=== PATIENT | male | born 1970 | race Caucasian/White ===

== ENCOUNTER 2017-01-30 18:30 | Emergency (ER) | payer SELFPAY ==
[~2017-01-30] VITALS: Ht 170.2 cm; Wt 118.8 kg
[~2017-01-30 18:30] MED LIST: ASP325TEC PO; ASPI-266 PO; ASPI-587 PO; ATOR80TA75 PO; CARV25TA PO; CARV6.252 PO; Cefuroxime Axetil PO; DESV100T PO; DIAZ10TA3 PO; EZET10TA23 PO; FOLI1TAB24 PO; FURO40TA4 PO; GABA800T2 PO; GBPN600T PO; HYDR118S10 PO; IBP800T PO; IBUP800T26 PO; ICOS1CAP PO; KCL10CCR PO; LANS15CA PO; LIRA0.6P SC; LISI10TA2 PO; LISI40TA PO; METF500T4 PO; METH2.5T PO; MOBIC; MTF500T PO; OMEP40CA36 PO; OXYC1TAB28 PO; OXYC20TA14 PO; OXYC80TA39 PO; OXYC80TA42 PO; PRAM1TAB3 PO; PRD50T PO; PRED20TA PO; ROSU20TA14 PO; ROSU40TA PO; SULF-222 PO; TADA5TAB2 PO; TRAM50TA2 PO; VENL150C PO; VENL150C53 PO; VENL75CA PO; VENL75CA55 PO
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
--- NOTE | 2017-01-30 19:37 | Diagnostic Imaging Report ---
INDICATION: Shoulder pain after fall. COMPARISON: Comparison is made to prior study from 05/21/2016. FINDINGS: Heart size is stable. There is unchanged prominence of the maría. There is no pleural effusion or pneumothorax. Mediastinum is unremarkable. Pacemaker overlies the left hemithorax. There are no displaced rib fractures. IMPRESSION: 1. Unchanged prominence of the maría bilaterally, irregular on the left. This is nonspecific however may be related to the patient's previous diagnosis of sarcoidosis. If clinically warranted, this could be better evaluated with CT chest. 2. No other acute cardiopulmonary abnormality. Specifically, there are no displaced rib fractures. Dictated by: Dictated on workstation # [id number]
--- NOTE | 2017-01-30 19:50 | Diagnostic Imaging Report ---
INDICATION: Fall. TECHNIQUE: Three views of the left shoulder were obtained. FINDINGS: The alignment is normal. There is no fracture or dislocation. Left lung is clear. Soft tissues are unremarkable. IMPRESSION: No acute fracture or dislocation. Dictated by: Dictated on workstation # [id number]
[2017-01-30 19:59] VITALS: BP 129/83
== END 2017-01-30 20:02 | disposition home or self-care (01) ==
LOC: EDUNIT# 18:30 → ER 18:32
DX: S20.212A Contusion of left front wall of thorax, initial encounter (principal); I10 Essential (primary) hypertension; E11.9 Type 2 diabetes mellitus without complications; F17.210 Nicotine dependence, cigarettes, uncomplicated; I25.2 Old myocardial infarction; Z79.82 Long term (current) use of aspirin; Z79.84 Long term (current) use of oral hypoglycemic drugs; Z95.810 Presence of automatic (implantable) cardiac defibrillator; W05.0XXA Fall from non-moving wheelchair, initial encounter; Y92.009 Unspecified place in unspecified non-institutional (private) residence as the place of occurrence of the external cause; Y99.8 Other external cause status
CPT/HCPCS: 71101; 73030; 99282

== ENCOUNTER → 2017-03-27 | Outpatient (CLI) | payer MEDICARE, OTHER ==
[~2017-03-27] MED LIST changes: +ASPI-983 PO; +ATOR80TA76 PO; +CEFU500T63 PO; +LISI-556 PO; +MOME13HF IH; +ORPH100T PO; +OXYC30TA80 PO; +PRED2.5T PO; +RT-ALBUTEROL SULF 2.5 MG/3 ML PRE-MIX VIAL IH ONE
== END ==
LOC: RT 14:09
PROVIDERS: ATTEND Nurse Practitioner Family
DX: R06.02 Shortness of breath; Z72.0 Tobacco use; D86.9 Sarcoidosis, unspecified
CPT/HCPCS: 94060; 94640; 94726; 94729

== ENCOUNTER 2017-05-02 09:30 | Outpatient (CLI) | payer MEDICARE, OTHER ==
[~2017-05-02 09:30] MED LIST changes: -ASPI-983 PO; -ATOR80TA76 PO; -CEFU500T63 PO; -LISI-556 PO; -MOME13HF IH; -ORPH100T PO; -OXYC30TA80 PO; -PRED2.5T PO; -RT-ALBUTEROL SULF 2.5 MG/3 ML PRE-MIX VIAL IH ONE
== END 2017-05-02 10:00 ==
LOC: SLEEP 09:30
PROVIDERS: ATTEND Nurse Practitioner Family
DX: G47.34 Idiopathic sleep related nonobstructive alveolar hypoventilation (principal); R06.02 Shortness of breath; D86.9 Sarcoidosis, unspecified

== ENCOUNTER 2017-07-25 15:02 | Day surgery (SDC) | payer MEDICARE, OTHER ==
[~2017-07-25] VITALS: Ht 170.2 cm; Wt 106.1 kg
--- OUTSIDE RECORDS SUMMARY | 2017-07-25 15:11 | XMS REPORT | Continuity of Care Document ---
Author Author [employer] Organization [facility] Address Unknown Phone Unavailable Care Team Providers Care Diesel Locomotive Firer Name Role Phone [employer] Unavailable Unavailable Problems Medications Allergies, Adverse Reactions, Alerts Immunizations Results Vital Signs Encounters Location Location Details Encounter Type Encounter Number Reason For Visit Attending Provider ADM Date DC Date Status Source Lisandro MILAN Active [facility] Procedures Plan of Care Social History Assessment and Plan Family History Value Date Source Advance Directives Order Name Results Value Date Source
--- OUTSIDE RECORDS SUMMARY | 2017-07-25 15:12 | XMS REPORT | Encounter Summary ---
Author Author [facility] Organization [facility] Address Unknown Phone Unavailable Care Team Providers Care Data Mining Analyst Name Role Phone PCP Unavailable Encounter Details Date Type Department Care Team Description 05/02/2017 [facility] Horace Pena MD Sarcoidosis, unspecified Encounter [address] (HCC) [place] [address] [address] [place] [address] [phone] Social History Tobacco Use Types Packs/Day Years Used Date Current Every Day Smoker Cigarettes 1 24 Smokeless Tobacco: Never Used Alcohol Use Drinks/Week oz/Week Comments No 0 Standard 0.0 drinks or equivalent Sex Assigned at Date Recorded Not on file as of this encounter Medications at Time of Discharge Medication Sig. Disp. Refills Start Date End Date aspirin EC 81 mg tablet Take 81 mg by mouth daily. atorvastatin (LIPITOR) 80 Take 80 mg by mouth mg tablet daily. azaTHIOprine (IMURAN) 50 Take 1 Tab by mouth twice 60 Tab 1 2016 mg tablet daily. carvedilol (COREG) 25 mg Take 25 mg by mouth twice tablet daily with meals. diazepam (VALIUM) 10 mg Take 10 mg by mouth every tablet 6 hours as needed. folic acid (FOLVITE) 1 mg TAKE ONE TABLET BY MOUTH 90 Tab 3 2015 tablet DAILY furosemide (LASIX) 40 mg Take 40 mg by mouth as tablet Needed. gabapentin (NEURONTIN) Take 800 mg by mouth four 800 mg tablet times daily. mycophenolate mofetil 2 Tabs twice daily. Take 120 Tab 1 05/20/2016 (CELLCEPT) 500 mg tablet on an empty stomach. oxyCODONE (ROXICODONE, Take 30 mg by mouth every OXY-IR) 30 mg tablet 4 hours as needed for Pain OXYGEN-AIR DELIVERY Use as directed. SYSTEMS MISC potassium chloride SR Take 10 mEq by mouth as (K-DUR) 10 mEq tablet Needed. predniSONE (DELTASONE) 5 7.5mg daily for 1 month, 45 Tab 3 08/30/2015 mg tablet then 5mg daily risperiDONE (RISPERDAL) Take 0.5 mg by mouth 0.5 mg tablet daily. tamsulosin (FLOMAX) 0.4 Take 0.4 mg by mouth mg capsule daily. VENLAFAXINE HCL (EFFEXOR Take 100 mg by mouth. PO) as of this encounter Plan of Treatment Not on fileas of this encounter Results * ANGIOTENSIN CONV ENZYME (GIGI) (05/02/2017 3:07 PM) Component Value Ref Range Angiotensin Convert 48 Enzyme Comment: Reference range: 8 to 53 Unit: U/L [facility] Specimen Performing Laboratory Blood REFERENCE LAB * SED RATE (05/02/2017 3:07 PM) Component Value Ref Range Sed Rate -ESR 8 0 - 15 MM/HR Specimen Performing Laboratory [facility] [address] [place] [address] * COMPREHENSIVE METABOLIC PANEL (05/02/2017 3:06 PM) Component Value Ref Range Sodium 137 137 - 147 MMOL/L Potassium 3.9 3.5 - 5.1 MMOL/L Chloride 101 98 - 110 MMOL/L Glucose 153 (H) 70 - 100 MG/DL Blood Urea Nitrogen 11 7 - 25 MG/DL Creatinine 1.11 0.4 - 1.24 MG/DL Calcium 9.6 8.5 - 10.6 MG/DL Total Protein 7.1 6.0 - 8.0 G/DL Total Bilirubin 0.9 0.3 - 1.2 MG/DL Albumin 4.1 3.5 - 5.0 G/DL Alk Phosphatase 69 25 - 110 U/L AST (SGOT) 32 7 - 40 U/L CO2 27 21 - 30 MMOL/L ALT (SGPT) 33 7 - 56 U/L Anion Gap 9 3 - 12 eGFR Non >60 >60 mL/min Comment: The eGFR is not validated for use in drug dosing adjustments. Continue to use estimated creatinine clearance per dosing reference text. Please contact the Clinical Pharmacist for questions. eGFR >60 >60 mL/min Comment: The eGFR is not validated for use in drug dosing adjustments. Continue to use estimated creatinine clearance per dosing reference text. Please contact the Clinical Pharmacist for questions. Specimen Performing Laboratory Blood MAIN [facility] [address] [place] [address] * C REACTIVE PROTEIN (CRP) (05/02/2017 3:06 PM) Component Value Ref Range C-Reactive Protein 1.63 (H) <1.0 MG/DL Specimen Performing Laboratory [facility] [address] [place] [address] * CBC AND DIFF (05/02/2017 3:06 PM) Component Value Ref Range White Blood Cells 13.0 (H) 4.5 - 11.0 K/UL RBC 4.97 4.4 - 5.5 M/UL Hemoglobin 15.7 13.5 - 16.5 GM/DL Hematocrit 45.9 40 - 50 % MCV 92.3 80 - 100 FL MCH 31.7 26 - 34 PG MCHC 34.3 32.0 - 36.0 G/DL RDW 13.5 11 - 15 % Platelet Count 177 150 - 400 K/UL MPV 8.9 7 - 11 FL Neutrophils 77 41 - 77 % Lymphocytes 14 (L) 24 - 44 % Monocytes 6 4 - 12 % Eosinophils 3 0 - 5 % Basophils 0 0 - 2 % Absolute Neutrophil Count 10.00 (H) 1.8 - 7.0 K/UL Absolute Lymph Count 1.80 1.0 - 4.8 K/UL Absolute Monocyte Count 0.70 0 - 0.80 K/UL Absolute Eosinophil Count 0.40 0 - 0.45 K/UL Absolute Basophil Count 0.00 0 - 0.20 K/UL Specimen Performing Laboratory [facility] [address] [place] [address] in this encounter Visit Diagnoses Diagnosis Sarcoidosis (HCC) Sarcoidosis Therapeutic drug monitoring Encounter for therapeutic drug monitoring Chronic chest pain Chest pain, unspecified Chronic fatigue Other malaise and fatigue Polyarthralgia Pain in joint, multiple sites Nonischemic cardiomyopathy (HCC) Other primary cardiomyopathies in this encounter Admitting Diagnoses Diagnosis Sarcoidosis, unspecified (HCC) Sarcoidosis, unspecified Chest pain, unspecified Other chronic pain Chronic fatigue, unspecified Pain in unspecified joint Other cardiomyopathies (HCC) Other cardiomyopathies in this encounter
--- OUTSIDE RECORDS SUMMARY | 2017-07-25 15:12 | XMS REPORT | Encounter Summary ---
Author Author [facility] Organization [facility] Address Unknown Phone Unavailable Care Team Providers Care Position Classifier Name Role Phone PCP Unavailable Reason for Visit * Reason Comments Joint Pain Encounter Details Date Type Department Care Team Description 05/02/2017 Office Visit [facility] Horace Pena MD Sarcoidosis ([facility]) Physicians - Internal [address] (Primary Dx);Chronic Medicine [place] [address] chest pain;Chronic [address] [place] [address] fatigue;Polyarthralgia;No [address] MED [phone] nischemic cardiomyopathy OFFICE [facility]LDG ([facility] [place] [address] Social History Tobacco Use Types Packs/Day Years Used Date Current Every Day Smoker Cigarettes 1 24 Smokeless Tobacco: Never Used Tobacco Cessation: Ready to Quit: Yes; Counseling Given: Yes Alcohol Use Drinks/Week oz/Week Comments No 0 Standard 0.0 drinks or equivalent Sex Assigned at Date Recorded Not on file as of this encounter Last Filed Vital Signs Vital Sign Reading Time Taken Blood Pressure 115/82 05/02/2017 2:23 PM CDT Pulse 87 05/02/2017 2:23 PM CDT Temperature 36.9 C (98.4 F) 05/02/2017 2:23 PM CDT Respiratory Rate 18 05/02/2017 2:23 PM CDT Oxygen Saturation - - Inhaled Oxygen - - Concentration Weight 104.3 kg (230 lb) 05/02/2017 2:23 PM CDT Height 170.2 cm (5' 7") 05/02/2017 2:23 PM CDT Body Mass Index 36.02 05/02/2017 2:23 PM CDT in this encounter Instructions * Patient Instructions - Horace Pena MD - 05/02/2017 2:30 PM CDT Please have lab work done today. I need to touch base with Dr. Green. We may need to start Humira. in this encounter Progress Notes * Horace Pena MD - 05/02/2017 2:30 PM CDT Formatting of this note may be different from the original. Date of Service: 05/02/2017 Subjective: Niraj Thomas is a 46 y.o. male. History of Present Illness 46yo M with sarcoidosis. He had to stop Imuran due to elevated LFTs. He has been feeling about the same. Breathing has bene okay. His joint pain is worse. He needs to use 6L of O2 at night. Doing sleep study tonight at home. Labs in 01/07 showed elevated AST/ALT in the 100s. He reports having Imuran stopped and LFTs returned to normal. He saw Dr. Green recently. coordinating the sleep studies. Past Medical History: Diagnosis Date Compression fracture Nonischemic cardiomyopathy (HCC) Sarcoidosis (HCC) Spinal stenosis No past surgical history on file. No family history on file. Social History Social History Marital status: Spouse name: N/A Number of children: N/A Years of education: N/A Social History Main Topics Smoking status: Current Every Day Smoker Packs/day: 1.00 Years: 24.00 Types: Cigarettes Smokeless tobacco: Never Used Alcohol use No Drug use: No Sexual activity: Not Asked Other Topics Concern None Social History Narrative Review of Systems Constitutional: Positive for activity change, appetite change, diaphoresis and fatigue. HENT: Positive for rhinorrhea and tinnitus. Eyes: Positive for photophobia. Respiratory: Positive for cough and shortness of breath. Difficulty breathing Endocrine: Positive for heat intolerance. Musculoskeletal: Positive for arthralgias, back pain, gait problem, myalgias and neck pain. Neurological: Positive for tremors, weakness and light-headedness. Psychiatric/Behavioral: The patient is nervous/anxious. Depression All other systems reviewed and are negative. Objective: aspirin EC 81 mg tablet Take 81 mg by mouth daily. atorvastatin (LIPITOR) 80 mg tablet Take 80 mg by mouth daily. azaTHIOprine (IMURAN) 50 mg tablet Take 1 Tab by mouth twice daily. carvedilol (COREG) 25 mg tablet Take 25 mg by mouth twice daily with meals. diazepam (VALIUM) 10 mg tablet Take 10 mg by mouth every 6 hours as needed. folic acid (FOLVITE) 1 mg tablet TAKE ONE TABLET BY MOUTH DAILY furosemide (LASIX) 40 mg tablet Take 40 mg by mouth as Needed. gabapentin (NEURONTIN) 800 mg tablet Take 800 mg by mouth four times daily. mycophenolate mofetil (CELLCEPT) 500 mg tablet 2 Tabs twice daily. Take on an empty stomach. oxyCODONE (ROXICODONE, OXY-IR) 30 mg tablet Take 30 mg by mouth every 4 hours as needed for Pain OXYGEN-AIR DELIVERY SYSTEMS MISC Use as directed. potassium chloride SR (K-DUR) 10 mEq tablet Take 10 mEq by mouth as Needed. predniSONE (DELTASONE) 5 mg tablet 7.5mg daily for 1 month, then 5mg daily risperiDONE (RISPERDAL) 0.5 mg tablet Take 0.5 mg by mouth daily. tamsulosin (FLOMAX) 0.4 mg capsule Take 0.4 mg by mouth daily. VENLAFAXINE HCL (EFFEXOR PO) Take 100 mg by mouth. Vitals: 05/02/17 1423 BP: 115/82 Pulse: 87 Resp: 18 Temp: 36.9 C (98.4 F) TempSrc: Oral Weight: 104.3 kg (230 lb) Height: 170.2 cm (67") Body mass index is 36.02 kg/(m^2). Discussed patient's BMI with him. The body mass index is 36.02 kg/(m^2). and falls within the category of Obesity 2 (35 to <40); specialist visit only, referred back to Primary Care Provider for follow up. Physical Exam Const: Comfortable, not distressed. HEENT: Atraumatic, normocephalic, throat clear, no ulcers. Eyes: PERRL and anicteric Neck: Supple, no lymphadenopathy or thyromegaly Lungs: normal respiratory effort, clear to auscultation bilaterally Heart: Normal rate and regular rhythm, S1 S2 normal, no murmur. No edema. Skin: no rash or lesions. Please see image for joint exam and additional notes. Assessment and Plan: 1. Polyarthralgia: Stable. 2. Systemic sarcoidosis: Increased pulmonary involvement in terms of lymphadenopathy. He did not have increased nodularity on CT scan from early 2017. 3. Nonischemic cardiomyopathy status post ICD placement. Improved. 4. Prior history of long-term steroids. 5. Bilateral hip AVN. 6. Ongoing tobaccoism. 7. Prior intolerance of Imuran. No improvement noted on mycophenolate mofetil or methotrexate. Plan: 1. Discussed options 2. I need to talk to Dr. Green. He has had pulmonary function testing done since his last visit here but I do not have this available. His CT scan was worse when last done. If his PFTs have shown decline then I do think he needs a disease modifying therapy. The best option at this stage would be an anti- TNF biologic such as Humira or infliximab. I had be more inclined to use Humira. Pt information provided. Reviewed indications, potential risks, side effects, toxicities, immunosuppressive/immunomodulatory effects and need for ongoing safety monitoring. 3. Can stay off prednisone for now. 4. Labs today seen below. Return to clinic in 6 months. I called and talked to Dr. Green. We agreed to wait on Humira for now, but will get PFTs again soon and likely repeat CT later this year. If worsening, then we can start Humira. Horace Pena MD Orders Placed This Encounter C REACTIVE PROTEIN (CRP) today CBC AND DIFF today COMPREHENSIVE METABOLIC PANEL today SED RATE today ANGIOTEN CONV ENZYME (GIGI) in this encounter Plan of Treatment Not on fileas of this encounter Results * ANGIOTENSIN CONV ENZYME (GIGI) (05/02/2017 3:07 PM) Component Value Ref Range Angiotensin Convert 48 Enzyme Comment: Reference range: 8 to 53 Unit: U/L [facility] Specimen Performing Laboratory Blood REFERENCE LAB * SED RATE (05/02/2017 3:07 PM) Component Value Ref Range Sed Rate -ESR 8 0 - 15 MM/HR Specimen Performing Laboratory [facility] [address] [place] [address] * COMPREHENSIVE METABOLIC PANEL (05/02/2017 3:06 PM) [...] Pharmacist for questions. Specimen Performing Laboratory [facility] [address] [place] [address] * C REACTIVE PROTEIN (CRP) (05/02/2017 3:06 PM) Component Value Ref Range C-Reactive Protein 1.63 (H) <1.0 MG/DL Specimen Performing Laboratory [facility] [address] [place] [address] in this encounter Visit Diagnoses Diagnosis Sarcoidosis (HCC) - Primary Sarcoidosis Chronic chest pain Chest pain, unspecified Chronic fatigue Other malaise and fatigue Polyarthralgia Pain in joint, multiple sites Nonischemic cardiomyopathy (HCC) Other primary cardiomyopathies in this encounter
--- OUTSIDE RECORDS SUMMARY | 2017-07-25 15:12 | XMS REPORT | Clinical Summary ---
Author Author [facility] Organization [facility] Address Unknown Phone Unavailable Care Team Providers Care Lock Fitter Name Role Phone PCP Unavailable Source Comments Some departments are not documenting in the electronic medical record. If you do not see the information that you expected, contact Release of Information in the Health Information Management department at [phone] for further assistance in locating additional records.[facility] Allergies Active Allergy Reactions Severity Noted Date Comments Pregabalin HEADACHE High 11/25/2014 Morphine HEADACHE, NAUSEA AND Low 08/26/2015 VOMITING Current Medications Prescription Sig. Disp. Refills Start End Date Status Date carvedilol (COREG) 25 mg Take 25 mg by mouth twice Active tablet daily with meals. aspirin EC 81 mg tablet Take 81 mg by mouth Active daily. diazepam (VALIUM) 10 mg Take 10 mg by mouth every Active tablet 6 hours as needed. VENLAFAXINE HCL (EFFEXOR Take 100 mg by mouth. Active PO) gabapentin (NEURONTIN) Take 800 mg by mouth four Active 800 mg tablet times daily. OXYGEN-AIR DELIVERY Use as directed. Active SYSTEMS MISC potassium chloride SR Take 10 mEq by mouth as Active (K-DUR) 10 mEq tablet Needed. furosemide (LASIX) 40 mg Take 40 mg by mouth as Active tablet Needed. atorvastatin (LIPITOR) 80 Take 80 mg by mouth Active mg tablet daily. predniSONE (DELTASONE) 5 7.5mg daily for 1 month, 45 Tab 3 08/30/20 Active mg tablet then 5mg daily 15 folic acid (FOLVITE) 1 mg TAKE ONE TABLET BY MOUTH 90 Tab 3 12/15/19 Active tablet DAILY 16 risperiDONE (RISPERDAL) Take 0.5 mg by mouth Active 0.5 mg tablet daily. tamsulosin (FLOMAX) 0.4 Take 0.4 mg by mouth Active mg capsule daily. mycophenolate mofetil 2 Tabs twice daily. Take 120 Tab 1 05/20/20 Active (CELLCEPT) 500 mg tablet on an empty stomach. 16 azaTHIOprine (IMURAN) 50 Take 1 Tab by mouth twice 60 Tab 1 12/01/19 Active mg tablet daily. 17 oxyCODONE (ROXICODONE, Take 30 mg by mouth every Active OXY-IR) 30 mg tablet 4 hours as needed for Pain Active Problems Problem Noted Date Sarcoidosis ([facility]) 02/22/2015 Polyarthralgia 11/25/2014 Myalgia 11/25/2014 History of sarcoidosis 11/25/2014 Nonischemic cardiomyopathy ([facility]) 11/25/2014 Pulmonary nodule 11/25/2014 Fatigue 11/25/2014 Chest pain 11/25/2014 Encounters Date Type Specialty Care Team Description 05/02/2017 [facility] Horace Pena MD Sarcoidosis, unspecified Encounter ([facility]) 05/02/2017 Office Visit Allergy,Immunology and Horace Pena MD Sarcoidosis ([facility]) Rheumatology (Primary Dx);Chronic chest pain;Chronic fatigue;Polyarthralgia;No nischemic cardiomyopathy ([facility]) 04/29/2017 Telephone Allergy,Immunology and Horace Pena MD General Question Rheumatology from Last 3 Months Social History Tobacco Use Types Packs/Day Years Used Date Current Every Day Smoker Cigarettes 1 24 Smokeless Tobacco: Never Used Tobacco Cessation: Ready to Quit: Yes; Counseling Given: Yes Alcohol Use Drinks/Week oz/Week Comments No 0 Standard 0.0 drinks or equivalent Sex Assigned at Date Recorded Not on file Last Filed Vital Signs Vital Sign Reading Time Taken Blood Pressure 115/82 05/02/2017 2:23 PM CDT Pulse 87 05/02/2017 2:23 PM CDT Temperature 36.9 C (98.4 F) 05/02/2017 2:23 PM CDT Respiratory Rate 18 05/02/2017 2:23 PM CDT Oxygen Saturation 100% 01/10/2016 3:13 PM CDT Inhaled Oxygen - - Concentration Weight 104.3 kg (230 lb) 05/02/2017 2:23 PM CDT Height 170.2 cm (5' 7") 05/02/2017 2:23 PM CDT Body Mass Index 36.02 05/02/2017 2:23 PM CDT Plan of Treatment Health Maintenance Due Date Last Done Comments PHYSICAL (COMPREHENSIVE) 1977 EXAM PERTUSSIS VACCINE 1981 TETANUS VACCINE 1987 INFLUENZA VACCINE 04/23/2017 Results * ANGIOTENSIN CONV ENZYME (GIGI) (05/02/2017 3:07 PM) Component Value Ref Range Angiotensin Convert 48 Enzyme Comment: Reference range: 8 to 53 Unit: U/L [facility] Specimen Performing Laboratory Blood REFERENCE LAB * SED RATE (05/02/2017 3:07 PM) Component Value Ref Range Sed Rate -ESR 8 0 - 15 MM/HR Specimen Performing Laboratory Blood MAIN LAB [address] [place] [address] * CBC AND DIFF (05/02/2017 3:06 PM) [...] K/UL Specimen Performing Laboratory Blood MAIN LAB [address] [place] [id number] * C REACTIVE PROTEIN (CRP) (05/02/2017 3:06 PM) Component Value Ref Range C-Reactive Protein 1.63 (H) <1.0 MG/DL Specimen Performing Laboratory Blood MAIN LAB [address] [place] [address] * COMPREHENSIVE METABOLIC PANEL (05/02/2017 3:06 PM) [...] Performing Laboratory Blood [facility] [address] [place] [address] from Last 3 Months
--- OUTSIDE RECORDS SUMMARY | 2017-07-25 15:12 | XMS REPORT | Encounter Summary ---
Author Author [facility] Organization [facility] Address Unknown Phone Unavailable Care Team Providers Care Driller Multiple Spindle Name Role Phone PCP Unavailable Reason for Visit * Reason Comments General Question Encounter Details Date Type Department Care Team Description 04/29/2017 Telephone [facility] Horace Pena MD General Question Physicians - Internal [address] [facility] [place] [address] [place] [address] [address] [facility] [phone] [place] [address] Social History Tobacco Use Types Packs/Day Years Used Date Current Every Day Smoker Cigarettes 1 24 Smokeless Tobacco: Never Used Comments: Trying right now Alcohol Use Drinks/Week oz/Week Comments No 0 Standard 0.0 drinks or equivalent Sex Assigned at Date Recorded Not on file as of this encounter Miscellaneous Notes * Telephone Encounter - Ingrid Joseph RN - 04/29/2017 3:29 PM CDT Pt called and lvm twice inquiring when last CT was and when his next appt is. Called pt and informed him that last CT was on 11/05/16. Pt requested results be faxed to automotive worker foreman Dr. Green. Then informed pt that his next appt is at 1600. Pt stated understanding. Faxed result to Dr. Green. in this encounter Plan of Treatment Not on fileas of this encounter Visit Diagnoses Not on filein this encounter
--- OUTSIDE RECORDS SUMMARY | 2017-07-25 15:23 | XMS REPORT | Continuity of Care Document ---
Author Author [facility] Address Unknown Phone Unavailable Allergies Active Description Code Type Severity Reaction Onset Reported/Identified Relationship to Patient Clinical Status Yes No Known Drug Allergies [id number] Drug Allergy Unknown N/ A 11/26/2012 Yes pregabalin [id number] Drug Allergy Mild migranes 02/28/2015 Medications Problems Date Dx Coded Attending Type Code Diagnosis Diagnosed By 04/19/2009 102.2 YAWS EARLY SKIN LESIONS 04/19/2009 LATRICE RAMIREZ DO 102.2 YAWS EARLY SKIN LESIONS 04/19/2009 LATRICE RAMIREZ DO 102.2 YAWS EARLY SKIN LESIONS 01/16/2010 686.9 UNSPECIFIED LOCAL INFECTION OF SKIN AND SUBCUTANEOUS TISSUE 01/16/2010 LATRICE RAMIREZ DO 686.9 UNSPECIFIED LOCAL INFECTION OF SKIN AND SUBCUTANEOUS TISSUE 01/16/2010 LATRICE RAMIREZ DO 686.9 UNSPECIFIED LOCAL INFECTION OF SKIN AND SUBCUTANEOUS TISSUE 02/25/2010 729.5 PAIN IN LIMB 02/25/2010 924.9 BRUISE/CONTUSION UNSPECIFIED SITE 02/25/2010 LATRICE RAMIREZ DO 729.5 PAIN IN LIMB 02/25/2010 LATRICE RAMIREZ DO 924.9 BRUISE/CONTUSION UNSPECIFIED SITE 02/25/2010 LATRICE RAMIREZ DO 729.5 PAIN IN LIMB 02/25/2010 LATRICE RAMIREZ DO 924.9 BRUISE/CONTUSION UNSPECIFIED SITE 05/05/2010 386.30 LABYRINTHITIS, UNSPECIFIED 05/05/2010 LATRICE RAMIREZ DO 386.30 LABYRINTHITIS, UNSPECIFIED 05/05/2010 LATRICE RAMIREZ DO 386.30 LABYRINTHITIS, UNSPECIFIED 06/13/2010 916.8 OTHER AND UNSPECIFIED SUPERFICIAL INJURY OF HIP THIGH LEG AND ANKLE WITHOUT INFECTION 06/13/2010 989.5 TOXIC EFFECT OF VENOM 06/13/2010 E849.9 [address] IN UNSPECIFIED PLACE 06/13/2010 E905.1 VENOMOUS SPIDERS CAUSING POISONING AND TOXIC REACTIONS 06/13/2010 RAMIREZ DO, LATRICE K 916.8 OTHER AND UNSPECIFIED SUPERFICIAL INJURY OF HIP THIGH LEG AND ANKLE WITHOUT INFECTION 06/13/2010 RAMIREZ DO, LATRICE K 989.5 TOXIC EFFECT OF VENOM 06/13/2010 RAMIREZ DO, LATRICE K E849.9 ACCIDENTS OCCURRING IN UNSPECIFIED PLACE 06/13/2010 RAMIREZ DO, LATRICE K E905.1 VENOMOUS SPIDERS CAUSING POISONING AND TOXIC REACTIONS 06/13/2010 RAMIREZ DO, LATRICE K 916.8 OTHER AND UNSPECIFIED SUPERFICIAL INJURY OF HIP THIGH LEG AND ANKLE WITHOUT INFECTION 06/13/2010 RAMIREZ DO, LATRICE K 989.5 TOXIC EFFECT OF VENOM 06/13/2010 RAMIREZ DO, LATRICE K E849.9 ACCIDENTS OCCURRING IN UNSPECIFIED PLACE 06/13/2010 RAMIREZ DO, LATRICE K E905.1 VENOMOUS SPIDERS CAUSING POISONING AND TOXIC REACTIONS 06/19/2010 916.8 OTHER AND UNSPECIFIED SUPERFICIAL INJURY OF HIP THIGH LEG AND ANKLE WITHOUT INFECTION 06/19/2010 989.5 TOXIC EFFECT OF VENOM 06/19/2010 E905.1 VENOMOUS SPIDERS THE CAUSE OF POISONING AND TOXIC REACTIONS 06/19/2010 RAMIREZ DO, LATRICE K 916.8 OTHER AND UNSPECIFIED SUPERFICIAL INJURY OF HIP THIGH LEG AND ANKLE WITHOUT INFECTION 06/19/2010 RAMIREZ DO, LATRICE K 989.5 TOXIC EFFECT OF VENOM 06/19/2010 RAMIREZ DO, LATRICE K E905.1 VENOMOUS SPIDERS THE CAUSE OF POISONING AND TOXIC REACTIONS 06/19/2010 RAMIREZ DO, LATRICE K 916.8 OTHER AND UNSPECIFIED SUPERFICIAL INJURY OF HIP THIGH LEG AND ANKLE WITHOUT INFECTION 06/19/2010 RAMIREZ DO, LATRICE K 989.5 TOXIC EFFECT OF VENOM 06/19/2010 RAMIREZ DO, LATRICE K E905.1 VENOMOUS SPIDERS THE CAUSE OF POISONING AND TOXIC REACTIONS 09/10/2012 466.0 BRONCHITIS, ACUTE 09/10/2012 786.2 COUGH 09/10/2012 RAMIREZ DO, LATRICE K 466.0 BRONCHITIS, ACUTE 09/10/2012 RAMIREZ DO, LATRICE K 786.2 COUGH 09/10/2012 RAMIREZ DO, LATRICE K 466.0 BRONCHITIS, ACUTE 09/10/2012 RAMIREZ DO, LATRICE K 786.2 COUGH 10/16/2012 RAMIREZ DO, LATRICE K 724.4 THORACIC OR LUMBOSACRAL NEURITIS OR RADICULITIS UNSPECIFIED 10/16/2012 LATRICE RAMIREZ DO 724.4 THORACIC OR LUMBOSACRAL NEURITIS OR RADICULITIS UNSPECIFIED 11/26/2012 Ot 724.2 LUMBAGO 12/17/2012 Ot 724.4 LUMBOSACRAL NEURITIS NOS 12/17/2012 Ot V57.1 PHYSICAL THERAPY NEC 04/02/2013 OLIVER GARAY DO Ot 931 FOREIGN BODY IN EAR 04/02/2013 OLIVER GARAY DO Ot E000.8 OTHER EXTERNAL CAUSE STATUS 04/02/2013 OLIVER GARAY DO Ot E849.0 ACCIDENT IN HOME 04/02/2013 OLIVER GARAY DO Ot E915 FB ENTERING OTH ORIFICE 08/12/2014 OLLIE CHAUDHARI, BRADY Srinivasan Ot 426.3 08/12/2014 OLLIE CHAUDHARI, BRADY Srinivasan Ot 786.50 08/12/2014 BRADY LEVIN MD Ot 794.30 08/12/2014 OLLIE CHAUDHARI, BRADY Srinivasan Ot 426.3 08/12/2014 BRADY LEVIN MD Ot 786.50 08/12/2014 BRADY LEVIN MD Ot 794.30 08/12/2014 PHILIP MEJIA MD Ot 272.4 HYPERLIPIDEMIA NEC/NOS 08/12/2014 PHILIP MEJIA MD Ot 425.4 PRIM CARDIOMYOPATHY NEC 08/12/2014 PHILIP MEJIA MD Ot 426.3 LEFT BB BLOCK NEC 08/12/2014 PHILIP MEJIA MD Ot 724.6 DISORDERS OF SACRUM 08/12/2014 ROBERTO CHAUDHARI, PHILIP Shah Ot V58.69 OTH MED,LT,CURRENT USE 08/16/2014 OLLIE CHAUDHARI, BRADY Srinivasan Ot 426.3 08/16/2014 OLLIE CHAUDHARI, BRADY Srinivasan Ot 786.50 08/16/2014 BRADY LEVIN MD Ot 794.30 08/17/2014 BRADY LEVIN MD Ot 305.1 TOBACCO USE DISORDER 08/17/2014 OLLIE CHAUDHARI, BRADY Srinivasan Ot 311 DEPRESSIVE DISORDER NEC 08/17/2014 OLLIE CHAUDHARI, BRADY Srinivasan Ot 414.01 CORONARY ATHEROSCLEROSIS OF [place] CORON 08/17/2014 OLLIE CHAUDHARI, BRADY Srinivasan Ot 414.8 CHR ISCHEMIC HRT DIS NEC 08/17/2014 OLLIE CHAUDHARI, BRADY Srinivasan Ot 428.0 CONGESTIVE HEART FAILURE NOS 08/17/2014 OLLIE CHAUDHARI, BRADY Srinivasan Ot 428.22 CHRONIC SYSTOLIC HRT FAILURE 08/17/2014 OLLIE CHAUDHARI, BRADY Srinivasan Ot 530.81 ESOPHAGEAL REFLUX 08/17/2014 OLLIE CHAUDHARI, BRADY Srinivasan Ot 724.5 BACKACHE NOS 08/17/2014 OLLIE CHAUDHARI, BRADY Srinivasan Ot 725 POLYMYALGIA RHEUMATICA 08/17/2014 OLLIE CHAUDHARI, BRADY Srinivasan Ot 305.1 08/17/2014 BRADY LEVIN MD Ot 311 08/17/2014 OLLIE CHAUDHARI, BRADY Srinivasan Ot 414.01 08/17/2014 OLLIE CHAUDHARI, BRADY Srinivasan Ot 414.8 08/17/2014 OLLIE CHAUDHARI, BRADY Srinivasan Ot 428.0 08/17/2014 BRADY LEVIN MD Ot 428.22 08/17/2014 BRADY LEVIN MD Ot 530.81 08/17/2014 BRADY LEVIN MD Ot 724.5 08/17/2014 BRADY LEVIN MD Ot 725 08/27/2014 PHILIP MEJIA MD Ot 327.26 SLEEP RELATED HYPOVENTILATION/ HYPOXEMIA 08/27/2014 PHILIP MEJIA MD Ot 786.09 RESPIRATORY ABNORM NEC 08/29/2014 TERESA WELLINGTON DO Ot 135 08/29/2014 TERESA WELLINGTON DO Ot 278.00 08/29/2014 TERESA WELLINGTON DO Ot 296.90 08/29/2014 TERESA WELLINGTON DO Ot 305.1 08/29/2014 TERESA WELLINGTON DO Ot 786.05 08/29/2014 TERESA WELLINGTON DO Ot 786.2 09/01/2014 TERESA WELLINGTON DO Ot 135 09/01/2014 TERESA WELLINGTON DO Ot 278.00 09/01/2014 TERESA WELLINGTON DO Ot 296.90 09/01/2014 TERESA WELLINGTON DO Ot 305.1 09/01/2014 TERESA WELLINGTON DO Ot 786.05 09/01/2014 TERESA WELLINGTON DO Ot 786.2 09/01/2014 TERESA WELLINGTON DO Ot 135 09/01/2014 VERONA WELLINGTON DOSON M Ot 278.00 09/01/2014 ELIZ DO, TERESA M Ot 296.90 09/01/2014 ELIZ DO, TREESA M Ot 305.1 09/01/2014 ELIZ DO, TERESA M Ot 786.05 09/01/2014 ELIZ DO, TERESA M Ot 786.2 09/02/2014 OLLIE CHAUDHARI, BRADY Srinivasan Ot 426.3 09/02/2014 OLLIE CHAUDHARI, BRADY Srinivasan Ot 786.50 09/02/2014 OLLIE CHAUDHARI, BRADY Srinivasan Ot 794.30 09/02/2014 ELIZ DO, TERESA M Ot 135 09/02/2014 ELIZ DO, TERESA M Ot 278.00 09/02/2014 ELIZ DO, TERESA M Ot 296.90 09/02/2014 ELIZ DO, TERESA M Ot 305.1 09/02/2014 ELIZ DO, TERESA M Ot 786.05 09/02/2014 ELIZ DO, TERESA M Ot 786.2 09/13/2014 ELIZ DO, TERESA M Ot 135 09/13/2014 ELIZ DO, TERESA M Ot 278.00 09/13/2014 ELIZ DO, TREESA M Ot 296.90 09/13/2014 ELIZ DO, TERESA M Ot 305.1 09/13/2014 ELIZ DO, TERESA M Ot 786.05 09/13/2014 ELIZ DO, TERESA M Ot 786.2 09/27/2014 ELIZ DO, TERESA M Ot 135 09/27/2014 ELIZ DO, TERESA M Ot 278.00 09/27/2014 ELIZ DO, TERESA M Ot 296.90 09/27/2014 ELIZ DO, TERESA M Ot 305.1 09/27/2014 ELIZ DO, TERESA M Ot 786.05 09/27/2014 ELIZ DO, TERESA M Ot 786.09 09/27/2014 ELIZ DO, TERESA M Ot 786.2 10/13/2014 OLLIE CHAUDHARI, BRADY Srinivasan Ot 426.3 10/13/2014 OLLIE CHAUDHARI, BRADY Srinivasan Ot 786.50 10/13/2014 OLLIE CHAUDHARI, BRADY Srinivasan Ot 794.30 10/13/2014 ELIZ DO, TERESA M Ot 135 10/13/2014 ELIZ DO, TERESA M Ot 278.00 10/13/2014 TERESA WELLINGTON DO Ot 296.90 10/13/2014 TERESA WELLINGTON DO Ot 305.1 10/13/2014 TERESA WELLINGTON DO Ot 786.05 10/13/2014 TERESA WELLINGTON DO Ot 786.2 10/13/2014 TERESA WELLINGTON DO Ot 135 10/13/2014 TERESA WELLINGTON DO Ot 278.00 10/13/2014 TERESA WELLINGTON DO Ot 296.90 10/13/2014 TERESA WELLINGTON DO Ot 305.1 10/13/2014 TERESA WELLINGTON DO Ot 786.05 10/13/2014 TERESA WELLINGTON DO Ot 786.09 10/13/2014 ELIZTERESA EASON DO Ot 786.2 10/28/2014 OLLIE CHAUDHARI, BRADY Srinivasan Ot 135 SARCOIDOSIS 10/28/2014 OLLIE CHAUDHARI, BRADY Srinivasan Ot 403.90 HYPTNSV CHR KID DIS, UNSPEC, W CHR KD ST 10/28/2014 OLLIE CHAUDHARI, BRADY Srinivasan Ot 414.01 CORONARY ATHEROSCLEROSIS OF [place] CORON 10/28/2014 BRADY LEVIN MD Ot 425.4 PRIM CARDIOMYOPATHY NEC 10/28/2014 BRADY LEVIN MD Ot 585.9 CHRONIC KIDNEY DISEASE, UNSPECIFIED 10/28/2014 OLLIE CHAUDHARI, BRADY Srinivasan Ot 725 POLYMYALGIA RHEUMATICA 10/28/2014 BRADY LEVIN MD Ot 780.2 SYNCOPE AND COLLAPSE 10/28/2014 BRADY LEVIN MD Ot 780.57 UNSPECIFIED SLEEP APNEA 10/28/2014 OLLIE CHAUDHARI, BRADY Srinivasan Ot V03.82 PROPHYLACTIC VACC AGAINST STREPTOCOCCUS 10/28/2014 BRADY LEVIN MD Ot V04.81 ND FOR PROPHYLACTIC VACCIN AND INOCULATI 11/01/2014 ELIZ COSTA TERESA Dudley Ot 135 11/01/2014 ELIZ TERESA Dudley Ot 305.1 11/01/2014 ELIZ TERESA Dudley Ot 311 11/01/2014 ELIZ TERESA M Ot 786.05 11/01/2014 ELIZ COSTA TERESA M Ot 786.2 11/10/2014 BRADY LEVIN MD Ot 426.3 11/10/2014 BRADY LEVIN MD Ot 786.50 11/10/2014 OLLIE CHAUDHARI, BRADY Srinivasan Ot 794.30 11/10/2014 ELIZ DO, TERESA M Ot 135 11/10/2014 ELIZ DO, TERESA M Ot 278.00 11/10/2014 ELIZ DO, TERESA M Ot 296.90 11/10/2014 ELIZ DO, TERESA M Ot 305.1 11/10/2014 ELIZ DO, TERESA M Ot 786.05 11/10/2014 ELIZ DO, TERESA M Ot 786.2 11/10/2014 ELIZ DO, TERESA M Ot 135 11/10/2014 ELIZ DO, TERESA M Ot 278.00 11/10/2014 ELIZ DO, TERESA M Ot 296.90 11/10/2014 ELIZ DO, TERESA M Ot 305.1 11/10/2014 ELIZ DO, TERESA M Ot 786.05 11/10/2014 ELIZ DO, TERESA M Ot 786.09 11/10/2014 ELIZ DO, TERESA M Ot 786.2 11/10/2014 ELIZ DO, TERESA M Ot 135 11/10/2014 ELIZ DO, TERESA M Ot 305.1 11/10/2014 ELIZ DO, TERESA M Ot 311 11/10/2014 ELIZ DO, TERESA M Ot 786.05 11/10/2014 ELIZ DO, TERESA M Ot 786.2 11/12/2014 OLLIE CHAUDHARI, BRADY Srinivasan Ot 426.3 11/12/2014 OLLIE CHAUDHARI, BRADY Srinivasan Ot 786.50 11/12/2014 OLLIE CHAUDHARI, BRADY Srinivasan Ot 794.30 11/12/2014 ELIZ DO, TERESA M Ot 135 11/12/2014 ELIZ DO, TERESA M Ot 278.00 11/12/2014 ELIZ DO, TERESA M Ot 296.90 11/12/2014 ELIZ DO, TERESA M Ot 305.1 11/12/2014 ELIZ DO, TERESA M Ot 786.05 11/12/2014 ELIZ DO, TERESA M Ot 786.2 11/12/2014 ELIZ DO, TERESA M Ot 135 11/12/2014 ELIZ DO, TERESA M Ot 278.00 11/12/2014 ELIZ DO, TERESA M Ot 296.90 11/12/2014 ELIZ DO, TERESA M Ot 305.1 11/12/2014 ELIZ DO, TERESA M Ot 786.05 11/12/2014 ELIZ DO, TERESA M Ot 786.09 11/12/2014 ELIZ DO, TERESA M Ot 786.2 11/12/2014 ELIZ DO, TERESA M Ot 135 11/12/2014 ELIZ DO, TERESA M Ot 305.1 11/12/2014 ELIZ DO, TERESA M Ot 311 11/12/2014 ELIZ DO, TERESA M Ot 786.05 11/12/2014 ELIZ DO, TERESA M Ot 786.2 11/12/2014 ELIZ DO, TERESA M Ot 135 11/12/2014 ELIZ DO, TERESA M Ot 305.1 11/12/2014 ELIZ DO, TERESA M Ot 311 11/12/2014 ELIZ DO, TERESA M Ot 786.05 11/12/2014 ELIZ DO, TERESA M Ot 786.2 11/17/2014 OLLIE CHAUDHARI, BRADY Srinivasan Ot 426.3 11/17/2014 OLLIE CHAUDHARI, BRADY D Ot 786.50 11/17/2014 OLLIE CHAUDHARI, BRADY D Ot 794.30 11/17/2014 ELIZ DO, TERESA M Ot 135 11/17/2014 ELIZ DO, TERESA M Ot 278.00 11/17/2014 ELIZ DO, TERESA M Ot 296.90 11/17/2014 ELIZ DO, TERESA M Ot 305.1 11/17/2014 ELIZ DO, TERESA M Ot 786.05 11/17/2014 ELIZ DO, TERESA M Ot 786.2 11/17/2014 ELIZ DO, TERESA M Ot 135 11/17/2014 ELIZ DO, TERESA M Ot 278.00 11/17/2014 ELIZ DO, TERESA M Ot 296.90 11/17/2014 ELIZ DO, TERESA M Ot 305.1 11/17/2014 ELIZ DO, TERESA M Ot 786.05 11/17/2014 ELIZ DO, TERESA M Ot 786.09 11/17/2014 ELIZ DO, TERESA M Ot 786.2 11/17/2014 ELIZ DO, TERESA M Ot 135 11/17/2014 ELIZ DO, TERESA M Ot 305.1 11/17/2014 ELIZ DO, TERESA M Ot 311 11/17/2014 ELIZ TERESA COSTA M Ot 786.05 11/17/2014 TERESA WELLINGTON DO M Ot 786.2 11/17/2014 Ot 135 11/17/2014 Ot 272.4 11/17/2014 Ot 425.4 11/17/2014 Ot 724.5 11/17/2014 Ot 725 11/17/2014 ELIZ VERONA COSTASON M Ot 135 11/17/2014 ELIZ VERONA COSTASON M Ot 305.1 11/17/2014 ELIZ TERESA M Ot 311 11/17/2014 ELIZ VERONA COSTASON M Ot 786.05 11/17/2014 ELIZ TERESA COSTA M Ot 786.2 12/01/2014 Ot 135 SARCOIDOSIS 12/01/2014 Ot 272.4 HYPERLIPIDEMIA NEC/NOS 12/01/2014 Ot 305.1 TOBACCO USE DISORDER 12/01/2014 Ot 401.9 HYPERTENSION NOS 12/01/2014 Ot 425.4 PRIM CARDIOMYOPATHY NEC 12/01/2014 Ot 427.89 CARDIAC DYSRHYTHMIAS NEC 12/01/2014 Ot V58.69 OTH MED,LT,CURRENT USE 02/15/2015 OLLIE CHAUDHARI, BRADY Srinivasan Ot 426.3 02/15/2015 OLLIE CHAUDHARI, BRADY Srinivasan Ot 786.50 02/15/2015 OLLIE CHAUDHARI, BRADY Srinivasan Ot 794.30 02/15/2015 ELIZ COSTA TREESA M Ot 135 02/15/2015 ELIZ COSTA TERESA M Ot 278.00 02/15/2015 TERESA WELLINGTON DO M Ot 296.90 02/15/2015 TERESA WELLINGTON DO M Ot 305.1 02/15/2015 TERESA WELLINGTON DO M Ot 786.05 02/15/2015 TERESA WELLINGTON DO M Ot 786.2 02/15/2015 ELIZ COSTA, TERESA M Ot 135 02/15/2015 TERESA WELLINGTON DO M Ot 278.00 02/15/2015 VERONA WELLINGTON DOSON M Ot 296.90 02/15/2015 TERESA WELLINGTON DO M Ot 305.1 02/15/2015 TERESA WELLINGTON DO M Ot 786.05 02/15/2015 TERESA WELLINGTON DO M Ot 786.09 02/15/2015 TERESA WELLINGTON DO M Ot 786.2 02/15/2015 TERESA WELLINGTON DO M Ot 135 02/15/2015 ELIZ DO, TERESA M Ot 305.1 02/15/2015 ELIZ DO, TERESA M Ot 311 02/15/2015 ELIZ DO, TERESA M Ot 786.05 02/15/2015 ELIZ DO, TERESA M Ot 786.2 02/15/2015 Ot 135 02/15/2015 Ot 272.4 02/15/2015 Ot 425.4 02/15/2015 Ot 724.5 02/15/2015 Ot 725 02/15/2015 ELIZ DO, TERESA M Ot 135 02/15/2015 ELIZ DO, TERESA M Ot 305.1 02/15/2015 ELIZ DO, TERESA M Ot 311 02/15/2015 ELIZ DO, TERESA M Ot 786.05 02/15/2015 ELIZ DO, TERESA M Ot 786.2 02/22/2015 OLLIE CHAUDHARI, BRADY Srinivasan Ot 426.3 02/22/2015 OLLIE CHAUDHARI, BRADY Srinivasan Ot 786.50 02/22/2015 OLLIE CHAUDHARI, BRADY Srinivasan Ot 794.30 02/22/2015 ELIZ DO, TERESA M Ot 135 02/22/2015 ELIZ DO, TERESA M Ot 278.00 02/22/2015 ELIZ DO, TERESA M Ot 296.90 02/22/2015 ELIZ DO, TERESA M Ot 305.1 02/22/2015 ELIZ DO, TERESA M Ot 786.05 02/22/2015 ELIZ DO, TERESA M Ot 786.2 02/22/2015 ELIZ DO, TERESA M Ot 135 02/22/2015 ELIZ DO, TERESA M Ot 278.00 02/22/2015 ELIZ DO, TERESA M Ot 296.90 02/22/2015 ELIZ DO, TERESA M Ot 305.1 02/22/2015 ELIZ DO, TERESA M Ot 786.05 02/22/2015 ELIZ DO, TERESA M Ot 786.09 02/22/2015 ELIZ DO, TERESA M Ot 786.2 02/22/2015 ELIZ DO, TERESA M Ot 135 02/22/2015 ELIZ DO, TERESA M Ot 305.1 02/22/2015 ELIZ DO, TERESA M Ot 311 02/22/2015 ELIZ DO, TERESA M Ot 786.05 02/22/2015 TERESA WELLINGTON DO Ot 786.2 02/22/2015 Ot 135 02/22/2015 Ot 272.4 02/22/2015 Ot 425.4 02/22/2015 Ot 724.5 02/22/2015 Ot 725 02/22/2015 TERESA WELLINGTON DO Ot 135 02/22/2015 TERESA WELLINGTON DO Ot 305.1 02/22/2015 TERESA WELLINGTON DO Ot 311 02/22/2015 TERESA WELLINGTON DO Ot 786.05 02/22/2015 TERESA WELLINGTON DO Ot 786.2 03/02/2015 OLLIE CHAUDHARI, BRADY D Ot 135 03/02/2015 OLLIE CHAUDHARI, BRADY D Ot 250.00 03/02/2015 OLLIE CHAUDHARI, BRADY D Ot 272.4 03/02/2015 OLLIE CHAUDHARI, BRADY D Ot 300.00 03/02/2015 OLLIE CHAUDHARI, BRADY D Ot 311 03/02/2015 OLLIE CHAUDHARI, BRADY D Ot 403.90 03/02/2015 OLLIE CHAUDHARI, BRADY D Ot 412 03/02/2015 OLLIE CHAUDHARI, BRADY D Ot 425.4 03/02/2015 OLLIE CHAUDHARI, BRADY D Ot 429.3 03/02/2015 OLLIE CHAUDHARI, BRADY D Ot 530.81 03/02/2015 OLLIE CHAUDHARI, BRADY D Ot 584.9 03/02/2015 OLLIE CHAUDHARI, BRADY D Ot 585.9 03/02/2015 OLLIE CHAUDHARI, BRADY D Ot 719.49 03/02/2015 OLLIE CHAUDHARI, BRADY D Ot 782.3 03/03/2015 OLLIE CHAUDHARI, BRADY D Ot 135 03/03/2015 OLLIE CHAUDHARI, BRADY D Ot 250.00 03/03/2015 OLLIE CHAUDHARI, BRADY D Ot 272.4 03/03/2015 OLLIE CHAUDHARI, BRADY D Ot 300.00 03/03/2015 OLLIE CHAUDHARI, BRADY D Ot 311 03/03/2015 OLLIE CHAUDHARI, BRADY D Ot 403.90 03/03/2015 OLLIE CHAUDHARI, BRADY D Ot 412 03/03/2015 OLLIE CHAUDHARI, BRADY D Ot 425.4 03/03/2015 OLLIE CHAUDHARI, BRADY D Ot 429.3 03/03/2015 BRADY LEVIN MD Ot 530.81 03/03/2015 BRADY LEVIN MD Ot 584.9 03/03/2015 BRADY LEVIN MD Ot 585.9 03/03/2015 BRADY LEVIN MD Ot 719.49 03/03/2015 BRADY LEVIN MD Ot 782.3 03/03/2015 BRADY LEVIN MD Ot 135 SARCOIDOSIS 03/03/2015 BRADY LEVIN MD Ot 250.00 DIAB ANDERS WO COMPL, TYPE II OR UNSPEC TY 03/03/2015 BRADY LEVIN MD Ot 272.0 PURE HYPERCHOLESTEROLEM 03/03/2015 BRADY LEVIN MD Ot 272.4 HYPERLIPIDEMIA NEC/NOS 03/03/2015 BRADY LEVIN MD Ot 275.2 DIS MAGNESIUM METABOLISM 03/03/2015 BRADY LEVIN MD Ot 276.51 DEHYDRATION 03/03/2015 BRADY LEVIN MD Ot 276.7 HYPERPOTASSEMIA 03/03/2015 BRADY LEVIN MD Ot 300.00 ANXIETY STATE NOS 03/03/2015 BRADY LEVIN MD Ot 305.1 TOBACCO USE DISORDER 03/03/2015 BRADY LEVIN MD Ot 311 DEPRESSIVE DISORDER NEC 03/03/2015 BRADY LEVIN MD Ot 327.26 SLEEP RELATED HYPOVENTILATION/HYPOXEMIA 03/03/2015 BRADY LEVIN MD Ot 356.9 IDIO PERIPH NEURPTHY NOS 03/03/2015 BRADY LEVIN MD Ot 403.90 HYPTNSV CHR KID DIS, UNSPEC, W CHR KD ST 03/03/2015 BRADY LEVIN MD Ot 412 OLD MYOCARDIAL INFARCT 03/03/2015 BRADY LEVIN MD Ot 425.4 PRIM CARDIOMYOPATHY NEC 03/03/2015 BRADY LEVIN MD Ot 429.3 CARDIOMEGALY 03/03/2015 BRADY LEVIN MD Ot 530.81 ESOPHAGEAL REFLUX 03/03/2015 BRADY LEVIN MD Ot 584.9 ACUTE RENAL FAILURE, UNSPECIFIED 03/03/2015 BRADY LEVIN MD Ot 585.9 CHRONIC KIDNEY DISEASE, UNSPECIFIED 03/03/2015 BRADY LEVIN MD Ot 719.49 JOINT PAIN-MULT JTS 03/03/2015 SCHOELING MD, BRADY D Ot 721.0 CERVICAL SPONDYLOSIS 03/03/2015 OLLIE CHAUDHARI, BRADY D Ot 721.3 LUMBOSACRAL SPONDYLOSIS 03/03/2015 OLLIE CHAUDHARI, BRADY D Ot 725 POLYMYALGIA RHEUMATICA 03/03/2015 OLLIE CHAUDHARI, BRADY D Ot 729.1 MYALGIA AND MYOSITIS NOS 03/03/2015 OLLIE CHAUDHARI, BRADY D Ot 782.3 EDEMA 03/03/2015 OLLIE CHAUDHARI, BRADY D Ot 799.3 DEBILITY NOS 03/03/2015 OLLIE CHAUDHARI, BRADY Srinivasan Ot 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 03/03/2015 OLLIE CHAUDHARI, BRADY Srinivasan Ot V58.65 LONG-TERM(CURRENT)USE OF STEROIDS 03/03/2015 OLLIE CHAUDHARI, BRADY Srinivasan Ot V58.67 LONG-TERM (CURRENT) USE OF INSULIN 03/03/2015 OLLIE CHAUDHARI, BRADY Srinivasan Ot 135 03/03/2015 OLLIE CHAUDHARI, BRADY D Ot 250.00 03/03/2015 OLLIE CHAUDHARI, BRADY D Ot 272.4 03/03/2015 OLLIE CHAUDHARI, BRADY D Ot 300.00 03/03/2015 OLLIE CHAUDHARI, BRADY D Ot 311 03/03/2015 OLLIE CHAUDHARI, BRADY D Ot 403.90 03/03/2015 OLLIE CHAUDHARI, BRADY D Ot 412 03/03/2015 OLLIE CHAUDHARI, BRADY D Ot 425.4 03/03/2015 OLLIE CHAUDHARI, BRADY D Ot 429.3 03/03/2015 OLLIE CHAUDHARI, BRADY D Ot 530.81 03/03/2015 OLLIE CHAUDHARI, BRADY D Ot 584.9 03/03/2015 OLLIE CHAUDHARI, BRADY D Ot 585.9 03/03/2015 OLLIE CHAUDHARI, BRADY D Ot 719.49 03/03/2015 OLLIE CHAUDHARI, BRADY D Ot 782.3 03/03/2015 OLLIE CHAUDHARI, BRADY D Ot 135 03/03/2015 OLLIE CHAUDHARI, BRADY D Ot 250.00 03/03/2015 OLLIE CHAUDHARI, BRADY D Ot 272.4 03/03/2015 OLLIE CHAUDHARI, BRADY D Ot 300.00 03/03/2015 OLLIE CHAUDHARI, BRADY D Ot 311 03/03/2015 OLLIE CHAUDHARI, BRADY D Ot 403.90 03/03/2015 OLLIE CHAUDHARI, BRADY D Ot 412 03/03/2015 OLLIE CHAUDHARI, BRADY D Ot 425.4 03/03/2015 OLLIE CHAUDHARI, BRADY D Ot 429.3 03/03/2015 OLLIE CHAUDHARI, BRADY D Ot 530.81 03/03/2015 OLLIE CHAUDHARI, BRADY D Ot 584.9 03/03/2015 OLLIE CHAUDHARI, BRADY D Ot 585.9 03/03/2015 OLLIE CHAUDHARI, BRADY D Ot 719.49 03/03/2015 OLLIE CHAUDHARI, BRADY D Ot 782.3 03/13/2015 OLLIE CHAUDHARI, BRADY D Ot 426.3 03/13/2015 OLLIE CHAUDHARI, BRADY D Ot 786.50 03/13/2015 OLLIE CHAUDHARI, BRADY D Ot 794.30 03/13/2015 ELIZ DO, TERESA M Ot 135 03/13/2015 ELIZ DO, TERESA M Ot 278.00 03/13/2015 ELIZ DO, TERESA M Ot 296.90 03/13/2015 ELIZ DO, TERESA M Ot 305.1 03/13/2015 ELIZ DO, TERESA M Ot 786.05 03/13/2015 ELZI DO, TERESA M Ot 786.2 03/13/2015 ELIZ DO, TERESA M Ot 135 03/13/2015 ELIZ DO, TERESA M Ot 278.00 03/13/2015 ELIZ DO, TERESA M Ot 296.90 03/13/2015 ELIZ DO, TERESA M Ot 305.1 03/13/2015 ELIZ DO, TERESA M Ot 786.05 03/13/2015 ELIZ DO, TERESA M Ot 786.09 03/13/2015 ELIZ DO, TERESA M Ot 786.2 03/13/2015 ELIZ DO, TERESA M Ot 135 03/13/2015 ELIZ DO, TERESA M Ot 305.1 03/13/2015 ELIZ DO, TERESA M Ot 311 03/13/2015 ELIZ DO, TERESA M Ot 786.05 03/13/2015 ELIZ DO, TERESA M Ot 786.2 03/13/2015 Ot 135 03/13/2015 Ot 272.4 03/13/2015 Ot 425.4 03/13/2015 Ot 724.5 03/13/2015 Ot 725 03/13/2015 TERESA WELLINGTON DO Ot 135 03/13/2015 TERESA WELLINGTON DO Ot 305.1 03/13/2015 TERESA WELLINGTON DO Ot 311 03/13/2015 TERESA WELLINGTON DO Ot 786.05 03/13/2015 TERESA WELLINGTON DO Ot 786.2 03/14/2015 OLLIE CHAUDHARI, BRADY Srinivasan Ot 135 03/14/2015 OLLIE CHAUDHARI, BRADY D Ot 250.00 03/14/2015 OLLIE CHAUDHARI, BRADY D Ot 272.4 03/14/2015 OLLIE CHAUDHARI, BRADY D Ot 276.51 03/14/2015 OLLIE CHAUDHARI, BRADY D Ot 300.00 03/14/2015 OLLIE CHAUDHARI, BRADY D Ot 305.1 03/14/2015 OLLIE CHAUDHARI, BRADY D Ot 311 03/14/2015 OLLIE CHAUDHARI, BRADY D Ot 401.9 03/14/2015 OLLIE CHAUDHARI, BRADY D Ot 412 03/14/2015 OLLIE CHAUDHARI, BRADY D Ot 428.0 03/14/2015 OLLIE CHAUDHARI, BRADY D Ot 428.22 03/14/2015 OLLIE CHAUDHARI, BRADY D Ot 458.9 03/14/2015 OLLIE CHAUDHARI, BRADY D Ot 530.81 03/14/2015 OLLIE CHAUDHARI, BRADY D Ot 584.9 03/14/2015 OLLIE CHAUDHARI, BRADY D Ot V45.02 03/14/2015 OLLIE CHAUDHARI, BRADY D Ot V58.67 03/14/2015 OLLIE CHAUDHARI, BRADY D Ot 135 SARCOIDOSIS 03/14/2015 OLLIE CHAUDHARI, BRADY D Ot 250.00 DIAB ANDERS WO COMPL, TYPE II OR UNSPEC TY 03/14/2015 OLLIE CHAUDHARI, BRADY D Ot 272.4 HYPERLIPIDEMIA NEC/NOS 03/14/2015 OLLIE CHAUDHARI, BRADY D Ot 276.51 DEHYDRATION 03/14/2015 OLLIE CHAUDHARI, BRADY Zarina Ot 300.00 ANXIETY STATE NOS 03/14/2015 OLLIE CHAUDHARI, BRADY D Ot 305.1 TOBACCO USE DISORDER 03/14/2015 OLLIE CHAUDHARI, BRADY D Ot 311 DEPRESSIVE DISORDER NEC 03/14/2015 OLLIE CHAUDHARI, BRADY D Ot 401.9 HYPERTENSION NOS 03/14/2015 OLLIE CHAUDHARI, BRADY D Ot 412 OLD MYOCARDIAL INFARCT 03/14/2015 OLLIE CHAUDHARI, BRADY Srinivasan Ot 428.0 CONGESTIVE HEART FAILURE NOS 03/14/2015 OLLIE CHAUDHARI, BRADY Srinivasan Ot 428.22 CHRONIC SYSTOLIC HRT FAILURE 03/14/2015 BRADY LEVIN MD Ot 458.9 HYPOTENSION NOS 03/14/2015 BRADY LEVIN MD Ot 530.81 ESOPHAGEAL REFLUX 03/14/2015 BRADY LEVIN MD Ot 584.9 ACUTE RENAL FAILURE, UNSPECIFIED 03/14/2015 BRADY LEVIN MD Ot 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 03/14/2015 BRADY LEVIN MD Ot V58.67 LONG-TERM (CURRENT) USE OF INSULIN 03/17/2015 BRADY LEVIN MD Ot 426.3 03/17/2015 BRADY LEVIN MD Ot 786.50 03/17/2015 BRADY LEVIN MD Ot 794.30 03/17/2015 VERONA WELLINGTON DOSON M Ot 135 03/17/2015 ELIZ DO, TERESA M Ot 278.00 03/17/2015 ELIZ DO, TERESA M Ot 296.90 03/17/2015 ELIZ DO, TERESA M Ot 305.1 03/17/2015 ELIZ COSTA, TERESA M Ot 786.05 03/17/2015 ELIZ DO, TERESA M Ot 786.2 03/17/2015 ELIZ DO, TERESA M Ot 135 03/17/2015 ELIZ DO, TERESA M Ot 278.00 03/17/2015 ELIZ DO, TERESA M Ot 296.90 03/17/2015 ELIZ DO, TERESA M Ot 305.1 03/17/2015 ELIZ DO, TERESA M Ot 786.05 03/17/2015 ELIZ DO, TERESA M Ot 786.09 03/17/2015 ELIZ DO, TERESA M Ot 786.2 03/17/2015 ELIZ DO, TERESA M Ot 135 03/17/2015 ELIZ DO, TERESA M Ot 305.1 03/17/2015 ELIZ DO, TERESA M Ot 311 03/17/2015 ELIZ DO, TERESA M Ot 786.05 03/17/2015 VERONA WELLINGTON DOSON M Ot 786.2 03/17/2015 Ot 135 03/17/2015 Ot 272.4 03/17/2015 Ot 425.4 03/17/2015 Ot 724.5 03/17/2015 Ot 725 03/17/2015 ELIZ DO, TERESA M Ot 135 03/17/2015 ELIZ DO, TERESA M Ot 305.1 03/17/2015 ELIZ DO, TERESA M Ot 311 03/17/2015 ELIZ DO, TERESA M Ot 786.05 03/17/2015 ELIZ DO, TERESA M Ot 786.2 03/24/2015 OLLIE CHAUDHARI, BRADY Srinivasan Ot 426.3 03/24/2015 OLLIE CHAUDHARI, BRADY Srinivasan Ot 786.50 03/24/2015 OLLIE CHAUDHARI, BRADY Srinivasan Ot 794.30 03/24/2015 ELIZ DO, TERESA M Ot 135 03/24/2015 ELIZ DO, TERESA M Ot 278.00 03/24/2015 ELIZ DO, TERESA M Ot 296.90 03/24/2015 ELIZ DO, TERESA M Ot 305.1 03/24/2015 ELIZ DO, TERESA M Ot 786.05 03/24/2015 ELIZ DO, TERESA M Ot 786.2 03/24/2015 ELIZ DO, TERESA M Ot 135 03/24/2015 ELIZ DO, TERESA M Ot 278.00 03/24/2015 ELIZ DO, TERESA M Ot 296.90 03/24/2015 ELIZ DO, TERESA M Ot 305.1 03/24/2015 ELIZ DO, TERESA M Ot 786.05 03/24/2015 ELIZ DO, TERESA M Ot 786.09 03/24/2015 ELIZ DO, TERESA M Ot 786.2 03/24/2015 ELIZ DO, TERESA M Ot 135 03/24/2015 ELIZ DO, TERESA M Ot 305.1 03/24/2015 ELIZ DO, TERESA M Ot 311 03/24/2015 ELIZ DO, TERESA M Ot 786.05 03/24/2015 ELIZ DO, TERESA M Ot 786.2 03/24/2015 Ot 135 03/24/2015 Ot 272.4 03/24/2015 Ot 425.4 03/24/2015 Ot 724.5 03/24/2015 Ot 725 03/24/2015 ELIZ DO, TERESA M Ot 135 03/24/2015 ELIZ DO, TERESA M Ot 305.1 03/24/2015 ELIZ DO, TERESA M Ot 311 03/24/2015 ELIZ DO, TERESA M Ot 786.05 03/24/2015 ELIZ DO, TERESA M Ot 786.2 05/24/2015 OLLIE CHAUDHARI, BRADY Srinivasan Ot 426.3 05/24/2015 OLLIE CHAUDHARI, BRADY Srinivasan Ot 786.50 05/24/2015 OLLIE CHAUDHARI, BRADY Srinivasan Ot 794.30 05/24/2015 ELIZ DO, TERESA M Ot 135 05/24/2015 ELIZ DO, TERESA M Ot 278.00 05/24/2015 ELIZ DO, TERESA M Ot 296.90 05/24/2015 ELIZ DO, TERESA M Ot 305.1 05/24/2015 ELIZ DO, TERESA M Ot 786.05 05/24/2015 ELIZ DO, TERESA M Ot 786.2 05/24/2015 ELIZ DO, TERESA M Ot 135 05/24/2015 ELIZ DO, TERESA M Ot 278.00 05/24/2015 ELIZ DO, TERESA M Ot 296.90 05/24/2015 ELIZ DO, TERESA M Ot 305.1 05/24/2015 ELIZ DO, TERESA M Ot 786.05 05/24/2015 ELIZ DO, TERESA M Ot 786.09 05/24/2015 ELIZ DO, TERESA M Ot 786.2 05/24/2015 ELIZ DO, TERESA M Ot 135 05/24/2015 ELIZ DO, TERESA M Ot 305.1 05/24/2015 ELIZ DO, TERESA M Ot 311 05/24/2015 ELIZ DO, TERESA M Ot 786.05 05/24/2015 ELIZ DO, TERESA M Ot 786.2 05/24/2015 Ot 135 05/24/2015 Ot 272.4 05/24/2015 Ot 425.4 05/24/2015 Ot 724.5 05/24/2015 Ot 725 05/24/2015 ELIZ DO, TERESA M Ot 135 05/24/2015 ELIZ DO, TERESA M Ot 305.1 05/24/2015 ELIZ DO, TERESA M Ot 311 05/24/2015 ELIZ DO, TERESA M Ot 786.05 05/24/2015 ELIZ DO, TERESA M Ot 786.2 06/23/2015 OLLIE CHAUDHARI, BRADY Srinivasan Ot 426.3 06/23/2015 OLLIE CHAUDHARI, BRADY Srinivasan Ot 786.50 06/23/2015 OLLIE CHAUDHARI, BRADY Srinivasan Ot 794.30 06/23/2015 TERESA WELLINGTON DO Ot 135 06/23/2015 TERESA WELLINGTON DO M Ot 278.00 06/23/2015 ELIZ COSTA, TERESA M Ot 296.90 06/23/2015 ELIZ COSTA, TERESA M Ot 305.1 06/23/2015 TERESA WELLINGTON DO M Ot 786.05 06/23/2015 TERESA WELLINGTON DO M Ot 786.2 06/23/2015 ELIZ COSTA, TERESA M Ot 135 06/23/2015 ELIZ COSTA, TERESA M Ot 278.00 06/23/2015 ELIZ COSTA, TERESA M Ot 296.90 06/23/2015 TERESA WELLINGTON DO M Ot 305.1 06/23/2015 TERESA WELLINGTON DO Ot 786.05 06/23/2015 TERESA WELLINGTON DO Ot 786.09 06/23/2015 TERESA WELLINGTON DO Ot 786.2 06/23/2015 ELIZ COSTA, TERESA Dudley Ot 135 06/23/2015 ELIZ COSTA, TERESA M Ot 305.1 06/23/2015 TERESA WELLINGTON DO M Ot 311 06/23/2015 TERESA WELLINGTON DO Ot 786.05 06/23/2015 TERESA WELLINGTON DO Ot 786.2 06/23/2015 Ot 135 06/23/2015 Ot 272.4 06/23/2015 Ot 425.4 06/23/2015 Ot 724.5 06/23/2015 Ot 725 06/23/2015 TERESA WELLINGTON DO M Ot 135 06/23/2015 TERESA WELLINGTON DO M Ot 305.1 06/23/2015 TERESA WELLINGTON DO M Ot 311 06/23/2015 TERESA WELLINGTON DO M Ot 786.05 06/23/2015 TERESA WELLINGTON DO Ot 786.2 07/07/2015 Ot 815.00 07/07/2015 Ot E000.8 07/07/2015 Ot E030 07/07/2015 Ot E849.4 07/07/2015 Ot E928.9 07/07/2015 Ot 724.00 07/07/2015 Ot Z02.71 07/07/2015 Ot Z13.89 07/27/2015 BARRETT STEELE QUALITY PROCESS AUDITOR Ot D86.9 07/27/2015 CEDRIC, BARRETT Rola QUALITY PROCESS AUDITOR Ot R06.02 08/04/2015 CEDRIC, BARRETT Rola QUALITY PROCESS AUDITOR Ot D86.9 08/04/2015 CEDRICBARRETT Rola QUALITY PROCESS AUDITOR Ot R06.02 08/08/2015 Ot Z02.71 08/08/2015 Ot Z13.89 08/08/2015 Ot Z02.71 08/08/2015 Ot Z13.89 09/26/2015 Ot Z02.71 09/26/2015 Ot Z13.89 10/19/2015 OLLIE CHAUDHARI, BRADY D Ot M25.551 10/19/2015 OLLIE CHAUDHARI, RBADY D Ot M25.561 10/19/2015 OLLIE CHAUDHARI, BRADY D Ot M25.551 12/07/2015 OLLIE CHAUDHARI, BRADY D Ot R53.83 01/03/2016 OLLIE CHAUDHARI, BRADY D Ot 426.3 01/03/2016 OLLIE CHAUDHARI, BRADY D Ot 786.50 01/03/2016 OLLIE CHAUDHARI, BRADY D Ot 794.30 01/03/2016 ELIZ COSTA, TERESA M Ot 135 01/03/2016 ELIZ DO, TERESA M Ot 278.00 01/03/2016 ELIZ DO, TERESA M Ot 296.90 01/03/2016 ELIZ DO, TERESA M Ot 305.1 01/03/2016 ELIZ DO, TERESA M Ot 786.05 01/03/2016 ELIZ DO, TERESA M Ot 786.2 01/03/2016 ELIZ DO, TERESA M Ot 135 01/03/2016 ELIZ DO, TERESA M Ot 278.00 01/03/2016 ELIZ DO, TERESA M Ot 296.90 01/03/2016 ELIZ DO, TERESA M Ot 305.1 01/03/2016 ELIZ DO, TERESA M Ot 786.05 01/03/2016 ELIZ DO, TERESA M Ot 786.09 01/03/2016 ELIZ DO, TERESA M Ot 786.2 01/03/2016 VERONA WELLINGTON DOSON M Ot 135 01/03/2016 TERESA WELLINGTON DO Ot 305.1 01/03/2016 TERESA WELLINGTON DO Ot 311 01/03/2016 TERESA WELLINGTON DO Ot 786.05 01/03/2016 TERESA WELLINGTON DO Ot 786.2 01/03/2016 Ot 135 01/03/2016 Ot 272.4 01/03/2016 Ot 425.4 01/03/2016 Ot 724.5 01/03/2016 Ot 725 01/03/2016 TERESA WELLINGTON DO Ot 135 01/03/2016 TERESA WELLINGTON DO Ot 305.1 01/03/2016 TERESA WELLINGTON DO Ot 311 01/03/2016 TERESA WELLINGTON DO Ot 786.05 01/03/2016 TERESA WELLINGTON DO Ot 786.2 01/03/2016 Ot Z02.71 01/03/2016 Ot Z13.89 01/18/2016 BRADY LEVIN MD Ot 426.3 LEFT BB BLOCK NEC 01/18/2016 BRADY LEVIN MD Ot 786.50 CHEST PAIN NOS 01/18/2016 BRADY LEVIN MD Ot 794.30 ABN CARDIOVASC STUDY NOS 01/18/2016 TERESA WELLINGTON DO Ot 135 SARCOIDOSIS 01/18/2016 TERESA WELLINGTON DO Ot 278.00 OBESITY, NOS 01/18/2016 TERESA WELLINGTON DO Ot 296.90 UNSPECIFIED EPISODIC MOOD DISORDER 01/18/2016 TERESA WELLINGTON DO Ot 305.1 TOBACCO USE DISORDER 01/18/2016 TERESA WELLINGTON DO Ot 786.05 SHORTNESS OF BREATH 01/18/2016 TERESA WELLINGTON DO Ot 786.2 COUGH 01/18/2016 TERESA WELLINGTON DO Ot 135 SARCOIDOSIS 01/18/2016 TERESA WELLINGTON DO Ot 278.00 OBESITY, NOS 01/18/2016 TERESA WELLINGTON DO M Ot 296.90 UNSPECIFIED EPISODIC MOOD DISORDER 01/18/2016 TERESA WELLINGTON DO Ot 305.1 TOBACCO USE DISORDER 01/18/2016 TERESA WELLINGTON DO Ot 786.05 SHORTNESS OF BREATH 01/18/2016 TERESA WELLINGTON DO Ot 786.09 RESPIRATORY ABNORM NEC 01/18/2016 TERESA WELLINGTON DO Ot 786.2 COUGH 01/18/2016 TERESA WELLINGTON DO Ot 135 SARCOIDOSIS 01/18/2016 TERESA WELLINGTON DO Ot 305.1 TOBACCO USE DISORDER 01/18/2016 TERESA WELLINGTON DO Ot 311 DEPRESSIVE DISORDER NEC 01/18/2016 TERESA WELLINGTON DO Ot 786.05 SHORTNESS OF BREATH 01/18/2016 TERESA WELLINGTON DO Ot 786.2 COUGH 01/18/2016 Ot 135 SARCOIDOSIS 01/18/2016 Ot 272.4 HYPERLIPIDEMIA NEC/NOS 01/18/2016 Ot 425.4 PRIM CARDIOMYOPATHY NEC 01/18/2016 Ot 724.5 BACKACHE NOS 01/18/2016 Ot 725 POLYMYALGIA RHEUMATICA 01/18/2016 TERESA WELLINGTON DO Ot 135 SARCOIDOSIS 01/18/2016 TERESA WELLINGTON DO Ot 305.1 TOBACCO USE DISORDER 01/18/2016 TERESA WELLINGTON DO Ot 311 DEPRESSIVE DISORDER NEC 01/18/2016 TERESA WELLINGTON DO Ot 786.05 SHORTNESS OF BREATH 01/18/2016 TERESA WELLINGTON DO Ot 786.2 COUGH 01/18/2016 Ot Z02.71 ENCOUNTER FOR DISABILITY DETERMINATION 01/18/2016 Ot Z13.89 ENCOUNTER FOR SCREENING FOR OTHER DISORD 01/18/2016 BRADY LEVIN MD Ot R53.83 OTHER FATIGUE 01/18/2016 Ot 724.00 SPINAL STENOSIS NOS 01/18/2016 Ot Z02.71 ENCOUNTER FOR DISABILITY DETERMINATION 01/18/2016 Ot Z13.89 ENCOUNTER FOR SCREENING FOR OTHER DISORD 01/18/2016 BRADY LEVIN MD Ot R53.83 OTHER FATIGUE 01/18/2016 BRADY LEVIN MD Ot M25.551 PAIN IN RIGHT HIP 01/18/2016 BRADY LEVIN MD Ot M25.561 PAIN IN RIGHT KNEE 01/18/2016 BRADY LEVIN MD Ot M25.551 PAIN IN RIGHT HIP 01/18/2016 BRADY LEVIN MD Ot M25.561 PAIN IN RIGHT KNEE 01/18/2016 BRADY LEVIN MD Ot M25.551 PAIN IN RIGHT HIP 01/18/2016 BRADY LEVIN MD Ot M25.561 PAIN IN RIGHT KNEE 01/18/2016 BARRETT STEELE APRN Ot D86.9 SARCOIDOSIS, UNSPECIFIED 01/18/2016 BARRETT STEELE QUALITY PROCESS AUDITOR Ot R06.02 SHORTNESS OF BREATH 01/18/2016 BRADY LEVIN MD Ot M25.551 PAIN IN RIGHT HIP 01/18/2016 BRADY LEVIN MD Ot R53.83 OTHER FATIGUE 01/18/2016 BARRETT STEELE QUALITY PROCESS AUDITOR Ot D86.9 SARCOIDOSIS, UNSPECIFIED 01/18/2016 BARRETT STEELE QUALITY PROCESS AUDITOR Ot R06.02 SHORTNESS OF BREATH 01/18/2016 OLLIE CHAUDHARI, BRADY D Ot R53.83 OTHER FATIGUE 01/18/2016 OLLIE CHAUDHARI BRADY D Ot M25.551 PAIN IN RIGHT HIP 01/18/2016 BRADY LEVIN MD Ot M25.561 PAIN IN RIGHT KNEE 01/19/2016 BRADY LEVIN MD Ot M25.551 PAIN IN RIGHT HIP 01/19/2016 BRADY LEVIN MD Ot M25.561 PAIN IN RIGHT KNEE 01/19/2016 BARRETT STEELE QUALITY PROCESS AUDITOR Ot D86.9 SARCOIDOSIS, UNSPECIFIED 01/19/2016 BARRETT STEELE QUALITY PROCESS AUDITOR Ot R06.02 SHORTNESS OF BREATH 01/19/2016 BRADY LEVIN MD Ot M25.551 PAIN IN RIGHT HIP 01/19/2016 BRADY LEVIN MD Ot R53.83 OTHER FATIGUE 01/19/2016 BRADY LEVIN MD Ot R53.83 OTHER FATIGUE 01/19/2016 BRADY LEVIN MD Ot M25.551 PAIN IN RIGHT HIP 01/19/2016 BRADY LEVIN MD Ot M25.561 PAIN IN RIGHT KNEE 01/19/2016 BARRETT STEELE QUALITY PROCESS AUDITOR Ot D86.9 SARCOIDOSIS, UNSPECIFIED 01/19/2016 BARRETT STEELE QUALITY PROCESS AUDITOR Ot R06.02 SHORTNESS OF BREATH 02/02/2016 BRADY LEVIN MD Ot M25.551 PAIN IN RIGHT HIP 02/02/2016 BRADY LEVIN MD Ot M25.561 PAIN IN RIGHT KNEE 02/02/2016 BARRETT STEELE QUALITY PROCESS AUDITOR Ot D86.9 SARCOIDOSIS, UNSPECIFIED 02/02/2016 BARRETT STEELE QUALITY PROCESS AUDITOR Ot R06.02 SHORTNESS OF BREATH 02/02/2016 BRADY LEVIN MD Ot M25.551 PAIN IN RIGHT HIP 02/02/2016 OLLIE CHAUDHARI, BRADY Srinivasan Ot R53.83 OTHER FATIGUE 06/20/2016 KADE TAY N QUALITY PROCESS AUDITOR Ot R06.09 OTHER FORMS OF DYSPNEA 06/20/2016 KADE TAY N QUALITY PROCESS AUDITOR Ot R51 HEADACHE 06/30/2016 BRADY LEVIN MD Ot 426.3 LEFT BB BLOCK NEC 06/30/2016 BRADY LEVIN MD Ot 786.50 CHEST PAIN NOS 06/30/2016 BRADY LEVIN MD Ot 794.30 ABN CARDIOVASC STUDY NOS 06/30/2016 TERESA WELLINGTON DO Ot 135 SARCOIDOSIS 06/30/2016 TERESA WELLINGTON DO Ot 278.00 OBESITY, NOS 06/30/2016 TERESA WELLINGTON DO Ot 296.90 UNSPECIFIED EPISODIC MOOD DISORDER 06/30/2016 TERESA WELLINGTON DO Ot 305.1 TOBACCO USE DISORDER 06/30/2016 TERESA WELLINGTON DO Ot 786.05 SHORTNESS OF BREATH 06/30/2016 TERESA WELLINGTON DO Ot 786.2 COUGH 06/30/2016 TERESA WELLINGTON DO Ot 135 SARCOIDOSIS 06/30/2016 TERESA WELLINGTON DO M Ot 278.00 OBESITY, NOS 06/30/2016 TERESA WELLINGTON DO M Ot 296.90 UNSPECIFIED EPISODIC MOOD DISORDER 06/30/2016 TERESA WELLINGTON DO M Ot 305.1 TOBACCO USE DISORDER 06/30/2016 TERESA WELLINGTON DO Ot 786.05 SHORTNESS OF BREATH 06/30/2016 TERESA WELLINGTON DO Ot 786.09 RESPIRATORY ABNORM NEC 06/30/2016 TERESA WELLINGTON DO Ot 786.2 COUGH 06/30/2016 TERESA WELLINGTON DO Ot 135 SARCOIDOSIS 06/30/2016 TERESA WELLINGTON DO M Ot 305.1 TOBACCO USE DISORDER 06/30/2016 TERESA WELLINGTON DO Ot 311 DEPRESSIVE DISORDER NEC 06/30/2016 TERESA WELLINGTON DO Ot 786.05 SHORTNESS OF BREATH 06/30/2016 TERESA WELLINGTON DO Ot 786.2 COUGH 06/30/2016 Ot 135 SARCOIDOSIS 06/30/2016 Ot 272.4 HYPERLIPIDEMIA NEC/NOS 06/30/2016 Ot 425.4 PRIM CARDIOMYOPATHY NEC 06/30/2016 Ot 724.5 BACKACHE NOS 06/30/2016 Ot 725 POLYMYALGIA RHEUMATICA 06/30/2016 TERESA WELLINGTON DO Ot 135 SARCOIDOSIS 06/30/2016 ELIZ TERESA Ot 305.1 TOBACCO USE DISORDER 06/30/2016 ELIZ TERESA Ot 311 DEPRESSIVE DISORDER NEC 06/30/2016 ELIZ COSTA TERESA Luis Enrique Ot 786.05 SHORTNESS OF BREATH 06/30/2016 ELIZ DO TERESA Luis Enrique Ot 786.2 COUGH 06/30/2016 Ot Z02.71 ENCOUNTER FOR DISABILITY DETERMINATION 06/30/2016 Ot Z13.89 ENCOUNTER FOR SCREENING FOR OTHER DISORD 01/30/2017 OLLIE CHAUDHARI, BRADY Srinivasan Ot M25.551 PAIN IN RIGHT HIP 01/30/2017 BRADY LEVIN MD Ot M25.561 PAIN IN RIGHT KNEE 01/30/2017 BARRETT STEELE APRN Ot D86.9 SARCOIDOSIS, UNSPECIFIED 01/30/2017 BARRETT STEELE APRN Ot R06.02 SHORTNESS OF BREATH 01/30/2017 BRADY LEVIN MD Ot M25.551 PAIN IN RIGHT HIP 01/30/2017 BRADY LEVIN MD Ot R53.83 OTHER FATIGUE 01/30/2017 KADE TAY APRN Ot R06.09 OTHER FORMS OF DYSPNEA 01/30/2017 KADE ATY APRN Ot R51 HEADACHE 01/30/2017 MIRANDA NATION APRN Ot E11.9 TYPE 2 DIABETES MELLITUS WITHOUT COMPLIC 01/30/2017 MIRANDA NATION APRN Ot F17.210 NICOTINE DEPENDENCE, CIGARETTES, UNCOMPL 01/30/2017 MIRANDA NATION APRN Ot I10 ESSENTIAL (PRIMARY) HYPERTENSION 01/30/2017 MIRANDA NATION APRN Ot I25.2 OLD MYOCARDIAL INFARCTION 01/30/2017 MIRANDA NATION APRN Ot S20.212A CONTUSION OF LEFT FRONT WALL OF THORAX , 01/30/2017 MIRANDA NATION APRN Ot S49.92XA UNSP INJURY OF LEFT SHOULDER AND UPPER A 01/30/2017 MIRANDA NATION APRN Ot W05.0XXA FALL FROM NON-MOVING WHEELCHAIR, INITIAL 01/30/2017 MIRANDA NATION APRN Ot Y92.[address] IN UNS NON-INSTITUT ( PRIVATE 01/30/2017 MIRANDA NATION APRN Ot Y99.8 OTHER EXTERNAL CAUSE STATUS 01/30/2017 MIRANDA NATION APRN Ot Z79.82 ALF (CURRENT) USE OF ASPIRIN 01/30/2017 MIRANDA NATION APRN Ot Z79.84 ALF (CURRENT) USE OF ORAL HYPOGLYC 01/30/2017 MIRANDA NATION APRN Ot Z95.810 PRESENCE OF AUTOMATIC (IMPLANTABLE) CARD 01/30/2017 BRADY LEVIN MD Ot M25.551 PAIN IN RIGHT HIP 01/30/2017 BRADY LEVIN MD Ot M25.561 PAIN IN RIGHT KNEE 01/30/2017 BARRETT STEELE APRN Ot D86.9 SARCOIDOSIS, UNSPECIFIED 01/30/2017 BARRETT STEELE APRN Ot R06.02 SHORTNESS OF BREATH 01/30/2017 BRADY LEVIN MD Ot M25.551 PAIN IN RIGHT HIP 01/30/2017 BRADY LEVIN MD Ot R53.83 OTHER FATIGUE 01/30/2017 KADE TAY APRN Ot R06.09 OTHER FORMS OF DYSPNEA 01/30/2017 KADE TAY APRN Ot R51 HEADACHE 02/06/2017 BRADY LEVIN MD Ot M25.551 PAIN IN RIGHT HIP 02/06/2017 BRADY LEVIN MD Ot M25.561 PAIN IN RIGHT KNEE 02/06/2017 BARRETT STEELE APRN Ot D86.9 SARCOIDOSIS, UNSPECIFIED 02/06/2017 BARRETT STEELE APRN Ot R06.02 SHORTNESS OF BREATH 02/06/2017 BRADY LEVIN MD Ot M25.551 PAIN IN RIGHT HIP 02/06/2017 BRADY LEVIN MD Ot R53.83 OTHER FATIGUE 02/06/2017 KADE TAY APRN Ot R06.09 OTHER FORMS OF DYSPNEA 02/06/2017 KADE TAY APRN Ot R51 HEADACHE 02/26/2017 MIRANDA NATION APRN Ot E11.9 TYPE 2 DIABETES MELLITUS WITHOUT COMPLIC 02/26/2017 MIRANDA NATION APRN Ot F17.210 NICOTINE DEPENDENCE, CIGARETTES, UNCOMPL 02/26/2017 MIRANDA NATION APRN Ot I10 ESSENTIAL (PRIMARY) HYPERTENSION 02/26/2017 MIRANDA NATION APRN Ot I25.2 OLD MYOCARDIAL INFARCTION 02/26/2017 MIRANDA NATION APRN Ot S20.212A CONTUSION OF LEFT FRONT WALL OF THORAX , 02/26/2017 MIRANDA NATION APRN Ot S49.92XA UNSP INJURY OF LEFT SHOULDER AND UPPER A 02/26/2017 MIRANDA NATION APRN Ot W05.0XXA FALL FROM NON-MOVING WHEELCHAIR, INITIAL 02/26/2017 MIRANDA NATION APRN Ot Y92.[address] IN UNSP NON-INSTITUT ( PRIVATE 02/26/2017 MIRANDA NATION APRN Ot Y99.8 OTHER EXTERNAL CAUSE STATUS 02/26/2017 MIRANDA NATION APRN Ot Z79.82 FINANCE BUSINESS MANAGER (CURRENT) USE OF ASPIRIN 02/26/2017 MIRANDA NATION APRN Ot Z79.84 FINANCE BUSINESS MANAGER (CURRENT) USE OF ORAL HYPOGLYC 02/26/2017 MIRANDA NATION APRN Ot Z95.810 PRESENCE OF AUTOMATIC (IMPLANTABLE) CARD 03/21/2017 OLLIE CHAUDHARI, BRADY Srinivasan Ot M25.551 PAIN IN RIGHT HIP 03/21/2017 BRADY LEVIN MD Ot M25.561 PAIN IN RIGHT KNEE 03/21/2017 BARRETT STEELE APRN Ot D86.9 SARCOIDOSIS, UNSPECIFIED 03/21/2017 BARRETT STEELE APRN Ot R06.02 SHORTNESS OF BREATH 03/21/2017 BRADY LEVIN MD Ot M25.551 PAIN IN RIGHT HIP 03/21/2017 BRADY LEVIN MD Ot R53.83 OTHER FATIGUE 03/21/2017 KADE TAY APRN Ot R06.09 OTHER FORMS OF DYSPNEA 03/21/2017 KADE TAY APRN Ot R51 HEADACHE 03/23/2017 MIRANDA NATION APRN Ot E11.9 TYPE 2 DIABETES MELLITUS WITHOUT COMPLIC 03/23/2017 MIRANDA NATION APRN Ot F17.210 NICOTINE DEPENDENCE, CIGARETTES, UNCOMPL 03/23/2017 MIRANDA NATION APRN Ot I10 ESSENTIAL (PRIMARY) HYPERTENSION 03/23/2017 MIRANDA NATION APRN Ot I25.2 OLD MYOCARDIAL INFARCTION 03/23/2017 MIRANDA NATION APRN Ot S20.212A CONTUSION OF LEFT FRONT WALL OF THORAX , 03/23/2017 MIRANDA NATION APRN Ot S49.92XA UNSP INJURY OF LEFT SHOULDER AND UPPER A 03/23/2017 MIRANDA NATION APRN Ot W05.0XXA FALL FROM NON-MOVING WHEELCHAIR, INITIAL 03/23/2017 MIRANDA NATION APRN Ot Y92.[address] IN UNSP NON-INSTITUT ( PRIVATE 03/23/2017 MIRANDA NATION APRN Ot Y99.8 OTHER EXTERNAL CAUSE STATUS 03/23/2017 MIRANDA NATION APRN Ot Z79.82 FINANCE BUSINESS MANAGER (CURRENT) USE OF ASPIRIN 03/23/2017 MIRANDA NATION APRN Ot Z79.84 ALF (CURRENT) USE OF ORAL HYPOGLYC 03/23/2017 MIRANDA NATION APRN Ot Z95.810 PRESENCE OF AUTOMATIC (IMPLANTABLE) CARD 04/02/2017 BARRETT STEELE QUALITY PROCESS AUDITOR Ot D86.9 SARCOIDOSIS, UNSPECIFIED 04/02/2017 BARRETT STEELE QUALITY PROCESS AUDITOR Ot R06.02 SHORTNESS OF BREATH 04/02/2017 BARRETT STEELE QUALITY PROCESS AUDITOR Ot Z72.0 TOBACCO USE 04/30/2017 BARRETT STEELE QUALITY PROCESS AUDITOR Ot G47.9 SLEEP DISORDER, UNSPECIFIED 04/30/2017 BARRETT STEELE QUALITY PROCESS AUDITOR Ot G47.9 SLEEP DISORDER, UNSPECIFIED 05/29/2017 BARRETT STEELE QUALITY PROCESS AUDITOR Ot D86.9 SARCOIDOSIS, UNSPECIFIED 05/29/2017 BARRETT STEELE QUALITY PROCESS AUDITOR Ot R06.02 SHORTNESS OF BREATH 05/29/2017 BARRETT STEELE QUALITY PROCESS AUDITOR Ot Z72.0 TOBACCO USE 07/08/2017 BARRETT STEELE QUALITY PROCESS AUDITOR Ot D86.9 SARCOIDOSIS, UNSPECIFIED 07/08/2017 BARRETT STEELE QUALITY PROCESS AUDITOR Ot G47.36 SLEEP RELATED HYPOVENTILATION IN CONDITI 07/08/2017 BARRETT STEELE QUALITY PROCESS AUDITOR Ot R06.02 SHORTNESS OF BREATH 07/09/2017 BARRETT STEELE QUALITY PROCESS AUDITOR Ot D86.9 SARCOIDOSIS, UNSPECIFIED 07/09/2017 BARRETT STEELE QUALITY PROCESS AUDITOR Ot G47.36 SLEEP RELATED HYPOVENTILATION IN CONDITI 07/09/2017 BARRETT STEELE QUALITY PROCESS AUDITOR Ot R06.02 SHORTNESS OF BREATH Procedures Code Description Performed By Performed On [facility], [facility] 10/16/2012 71747 XRAY THORACIC SPINE 2 VIEWS 11/04/2012 88334 XRAY LUMBAR SPINE 2 OR 3 VIEWS 11/04/2012 Results Encounters ACCT No. Visit Date/Time Discharge Status Pt. Type Provider Facility Loc./Unit Complaint [id number] 11/04/2012 16:08:00 11/04/2012 23: 59:59 CLS Outpatient LATRICE RAMIREZ DO [id number] 10/16/2012 13:23:00 10/16/2012 23: 59:59 CLS Outpatient LATRICE RAMIREZ DO [id number] 09/10/2012 13:37:00 09/10/2012 23: 59:59 CLS Outpatient [id number] 06/24/2017 08:15:00 2016 23:59:59 CLS Preadmit BARRETT STEELE QUALITY PROCESS AUDITOR [facility] PULM SOB [id number] 05/02/2017 09:30:00 2016 10:00:00 DIS Outpatient BARRETT STEELE QUALITY PROCESS AUDITOR [facility] SLEEP SOB [id number] 03/27/2017 14:09:00 2016 23:59:59 CLS Outpatient BARRETT STEELE QUALITY PROCESS AUDITOR [facility] RT R06.02,Z72.0,D86.9 [id number] 01/30/2017 18:32:00 2016 20:02:00 DIS Outpatient MIRANDA NATION QUALITY PROCESS AUDITOR [facility] ER FALL [id number] 05/21/2016 08:51:00 2015 23:59:59 CLS Outpatient KADE TAY QUALITY PROCESS AUDITOR [facility] RAD HEADACHE,DYSPNEA [id number] 11/08/2015 14:54:00 2015 23:59:59 CLS Outpatient BRADY LEVIN MD [facility] LAB DEPAKOTE, GENERAL HEALTH PANEL [id number] 08/16/2015 12:46:00 2014 23:59:59 CLS Outpatient BRADY LEVIN MD [facility] RAD HIP JT PAINFUL ON MVMT,PAIN IN RT HIP ,ACUTE PELVIC [id number] 08/15/2015 13:15:00 2014 23:59:59 CLS Outpatient BRADY LEVIN MD [facility] RAD HIP JOINT PAIN [id number] 07/22/2015 09:50:00 2014 23:59:59 CLS Outpatient BARRETT STEELE APRN [facility] CARD CAD,HTN HLP SOA [id number] 03/13/2015 14:00:00 2014 17:45:00 DIS Inpatient BRADY LEVIN MD [facility] ICU ACUTE RENAL FAILURE,VOLUME DEPLETION, VOMITING [id number] 02/28/2015 16:54:00 2014 12:32:00 DIS Inpatient BRADY LEVIN MD [facility] CSD ACUTE RENAL FAILURE, CARDIOMEGALY [id number] 11/09/2014 14:22:00 2014 23:59:59 CLS Outpatient TERESA WELLINGTON DO [facility] LAB SOB, DEPRESSION,SARCOIDOSIS [id number] 10/26/2014 20:20:00 2014 15:50:00 DIS Inpatient BRADY LEVIN MD [facility] 4TH SYNCOPE WITH TELEMETRY [id number] 10/13/2014 10:12:00 2014 23:59:59 CLS Outpatient TERESA WELLINGTON DO [facility] LAB SOB,CHRONIC COUGH,DEPRESSION, SARCOIDS [id number] 08/30/2014 16:00:00 2013 23:59:59 CLS Outpatient TERESA WELLINGTON DO [facility] LAB SARCOIDOSIS,SOB,OBESITY,MOOD DISORDER, CHRONIC COUG [id number] 08/27/2014 11:10:00 2013 23:59:59 CLS Outpatient TERESA WELLINGTON DO [facility] RAD SARCOIDOSIS, SOB [id number] 08/26/2014 21:55:00 2013 07:05:00 DIS Outpatient PHILIP MEJIA MD [facility] SLEEP YINA,SNORING, [id number] 08/16/2014 16:55:00 2013 16:34:00 DIS Inpatient BRADY LEVIN MD [facility] CSD CHEST PAIN [id number] 08/12/2014 07:36:00 2013 17:07:00 DIS Outpatient PHILIP MEJIA MD [facility] CATH CONGESTIVE CARDIOMYOPATHY, LBBB,HLP [id number] 07/29/2014 12:09:00 2013 23:59:59 CLS Outpatient BRADY LEVIN MD [facility] CARD CP,ABNORMAL EKG [id number] 04/01/2013 22:59:00 2012 01:47:00 DIS Emergency OLIVER GARAY DO [facility] ER [id number] 04/25/2017 11:38:00 Document Registration [id number] 06/30/2015 14:57:00 Document Registration [id number] 01/07/2015 15:39:00 Document Registration [id number] 11/12/2014 08:40:00 Document Registration [id number] 12/10/2012 16:13:00 Document Registration [id number] 12/03/2012 08:50:00 Document Registration [id number] 11/26/2012 10:48:00 Document Registration [id number] 02/25/2010 13:55:00 Document Registration
[2017-07-25] MEDS ORDERED: BACITRACIN 50000 UNITS/500 ML NS IR ONE ×2 (15:45)
[2017-07-25] MEDS ORDERED: PATIENT MAY USE OWN MEDS, ALL MC SCH (17:00)
[2017-07-25 17:16] VITALS: BP 116/79
[2017-07-25 18:00] VITALS: BP 119/78
[2017-07-25] MEDS ORDERED: MOME13HF IH (18:01)
[2017-07-25] MEDS ORDERED: ORPH100T PO (18:01)
[2017-07-25] MEDS ORDERED: CARV25TA PO (18:01)
[2017-07-25] MEDS ORDERED: OXYC30TA80 PO (18:01)
[2017-07-25 19:00] VITALS: BP 126/79
[2017-07-25 20:00] VITALS: BP 118/70
[2017-07-25] MEDS ORDERED: ACETAMINOPHEN 325 MG TABLET/CAPLET (TYLENOL) ONE (20:40)
[2017-07-25] MEDS: GABAPENTIN 400 MG (NEURONTIN) CAP PO SCH (20:51)
[2017-07-25] MEDS: CARVEDILOL 12.5 MG (COREG) TABLET PO SCH (20:51)
[2017-07-25 21:00] VITALS: BP 132/79
[2017-07-25] MEDS ORDERED: ACETAMINOPHEN 325 MG TABLET/CAPLET (TYLENOL) PO PRN (21:00)
[2017-07-25] MEDS ORDERED: ATORVASTATIN 80 MG (LIPITOR) TABLET PO SCH (21:00)
[2017-07-25 22:00] VITALS: BP 127/78
[2017-07-26] VITALS (11 sets, daily range): BP systolic 95–130; BP diastolic 53–87
[2017-07-26 04:37] LABS: MEAN PLATELET VOLUME 10.3 FL (7.4-10.4); RED BLOOD COUNT 4.35 10^6/uL (4.35-5.85); RED CELL DISTRIBUTION WIDTH 13.3 % (10.0-14.5); WHITE BLOOD COUNT 6.7 10^3/uL (4.3-11.0)
[2017-07-26 04:48] LABS: PROTHROMBIN TIME PATIENT 13.2 SEC (12.2-14.7)
[2017-07-26 04:58] LABS: ALANINE AMINOTRANSFERASE 22 U/L (0-55); ALBUMIN 3.5 GM/DL (3.2-4.5); ANION GAP 11 MMOL/L (5-14); ASPARTATE AMINO TRANSFERASE 21 U/L (5-34); BILIRUBIN,TOTAL 0.7 MG/DL (0.1-1.0); BLOOD UREA NITROGEN 11 MG/DL (7-18); BUN/CREATININE RATIO 11; CALCIUM 9.1 MG/DL (8.5-10.1); CARBON DIOXIDE 23 MMOL/L (21-32); CHLORIDE 105 MMOL/L (98-107); CREATININE SERUM 0.99 MG/DL (0.60-1.30); GFR ESTIMATED > 60; GLUCOSE 92 MG/DL (70-105); MAGNESIUM 2.3 MG/DL (1.8-2.4); SODIUM 139 MMOL/L (135-145); TOTAL PROTEIN 6.2 GM/DL (6.4-8.2)
[2017-07-26] MEDS: CARVEDILOL 12.5 MG (COREG) TABLET PO SCH (07:44)
[2017-07-26] MEDS: GABAPENTIN 400 MG (NEURONTIN) CAP PO SCH (07:44)
--- NOTE | 2017-07-26 07:55 | Progress Note-Cardiology ---
Cardiology SOAP Progress Note Subjective: Sitting up in the bed. No c/o CP, dyspnea, syncope or near syncope. C/O DELONG this morning. Objective: I&O/Vital Signs Vital Sign - Last 12Hours 07/26/17 07/26/17 07/26/17 07/26/17 05:00 06:00 07:00 07:03 Pulse 65 63 67 67 Resp 17 17 B/P (MAP) 114/72 98/53 130/79 Pulse Ox 96 100 93 O2 Delivery Room Air Room Air Room Air 07/26/17 07/26/17 07/26/17 07/26/17 08:00 08:38 12:00 13:00 Temp 98.0 Pulse 67 70 57 Resp 11 10 B/P (MAP) 120/73 124/68 Pulse Ox 91 95 O2 Delivery Room Air Room Air Intake and Output 07/27/17 00:00 Intake Total 30 ml Output Total 550 ml Balance -520 ml Weight (Pounds): 234 Weight (Ounces): 0.0 Weight (Calculated Kilograms): 106.877545 Constitutional: AAO x 3 Respiratory: No accessory muscle use, No respiratory distress, lungs clear to auscultation, other (prolonged expiratory phase) Cardiovascular: regular rate-rhythm, No JVD, S1 and S2 Gastrointestional: No tender, soft, round, audible bowel sounds Extremities: no lower extremity edema bilateral Neurologic/Psychiatric: grossly intact Skin: No rash, No ulcerations Results/Procedures: Labs Laboratory Tests 07/26/17 04:15: White Blood Count 6.7, Red Blood Count 4.35, Hemoglobin 13.6, Hematocrit 40, Mean Corpuscular Volume 92, Mean Corpuscular Hemoglobin 31, Mean Corpuscular Hemoglobin Concent 34, Red Cell Distribution Width 13.3, Platelet Count 190, Mean Platelet Volume 10.3, Prothrombin Time 13.2, INR Comment 1.0, Sodium Level 139, Potassium Level 4.0, Chloride Level 105, Carbon Dioxide Level 23, Anion Gap 11, Blood Urea Nitrogen 11, Creatinine 0.99, Estimat Glomerular Filtration Rate > 60, BUN/Creatinine Ratio 11, Glucose Level 92, Calcium Level 9.1, Magnesium Level 2.3, Total Bilirubin 0.7, Aspartate Amino Transf (AST/SGOT) 21, Alanine Aminotransferase (ALT/SGPT) 22, Alkaline Phosphatase 64, Total Protein 6.2L, Albumin 3.5 Laboratory Tests 07/26/17 04:15 A/P: Assessment: S/p dual chamber AICD pulse generator change on 07/26/17 Dual chamber AICD implant on 11-30-[address] Mireles. Device functioning per interrogation of August 2016. Device interrogation of July 25, 2017 showed battery depletion advisory Syncopal episode of undetermined etiology in May 2017 Echo of 07/26/17: mod global hypokinesis of the LV, LVEF 40-45%, PASP 30 mmHg Cardiac cath of July [address] Klein showed dilated NICM, LVEF 20% Non-ischemic dilated cardiomyopathy, LVEF 20-30% per cardiac cath of July 2014 and again on echocardiogram of October 2014 No evidence of YINA per sleep study by Dr. Emmanuel August 2014 HTN HLP Sarcoidosis Tobaccoism - cessation advised Plan: AICD battery depletion - plan for generator change out later today Syncopal episode of undetermined etiology - no further episodes; no arrhythmia documented thus far Echocardiogram pending Further recommendations will be based on hospital course Physician Assessment Physician Assessment No cp or palp or syncope during hospitalization Lungs: clear Cor: reg Ext: no c/c/e A&R * As documented in our note above that I updated (italics) and as noted below * We discussed post-op care for his pulse gen change * We have added GIGI-inhib to the regimen * BB are being continued * We have advised outpatient f/u at our office on 07/29/17 * I answered his and his 's questions MAGDY ERNANDEZ CORRESPONDENCE ANALYST Jul 26, 2017 07:55 GARRISON MIRELES MD [facility] Jul 26, 2017 17:03
--- NOTE | 2017-07-26 08:05 | Diagnostic Imaging Report ---
PA and lateral views of the chest. INDICATION: Preoperative for pacemaker change. FINDINGS: There is mild opacity in the right infrahilar region likely related to atelectasis. The left lung appears clear. The heart size is normal. No effusion or pneumothorax. Mediastinum and maría appear unremarkable. There is a pacemaker with two leads seen. IMPRESSION: Suggestion of mild right infrahilar atelectasis. Dictated by: Dictated on workstation # [id number]
[2017-07-26] MEDS ORDERED: NICOTINE PATCH REMOVAL TP SCH (08:59)
[2017-07-26] MEDS ORDERED: ASPIRIN 81 MG CHEW (CHILDREN'S ASA) PO NR (09:00)
[2017-07-26] MEDS ORDERED: DIAZ10TA3 PO (09:08)
[2017-07-26] MEDS ORDERED: PRED2.5T PO (09:08)
[2017-07-26] MEDS ORDERED: ASPI-983 PO (09:08)
[2017-07-26] MEDS ORDERED: GABA800T2 PO (09:08)
[2017-07-26] MEDS ORDERED: ATOR80TA76 PO (09:08)
[2017-07-26] MEDS ORDERED: NICOTINE 21 MG (NICODERM) PATCH TD SCH (10:01)
[2017-07-26] MEDS ORDERED: NS IV 1000 ML 1,000 ML IV ONE (12:00)
[2017-07-26] MEDS ORDERED: GABAPENTIN 800MG TABLET PO SCH (13:00)
[2017-07-26] MEDS ORDERED: BACITRACIN 50000 UNITS/500 ML NS IR ONE ×2 (14:00)
[2017-07-26] MEDS ORDERED: NS IV 1000 ML 1,000 ML ONE (14:51)
[2017-07-26] MEDS ORDERED: HEParin 1000 UNIT/ML (10ML VIAL) FOR BOLUS ONE (14:51)
[2017-07-26] MEDS ORDERED: fentaNYL INJECTION 100 MCG/2 ML AMP ONE (14:52)
[2017-07-26] MEDS ORDERED: diphenhydrAMINE 50 MG/ML INJ (BENADRYL) ONE (14:52)
[2017-07-26] MEDS ORDERED: MIDAZOLAM 5 MG/5 ML (VERSED) VIAL ONE ×2 (14:52→15:56)
[2017-07-26] MEDS ORDERED: ceFAZolin 1,000 MG (ANCEF) VIAL IV ONE (15:30)
[2017-07-26] MEDS ORDERED: BACITRACIN INJECTION 50,000 UNIT, SODIUM CHLORIDE 0.9% IRRIGATIO 500 ML IR ONE ×2 (15:30)
[2017-07-26] MEDS ORDERED: NEO/POLY/BAC (NEOSPORIN) OINT 15 GM TUBE ONE (16:01)
[2017-07-26] MEDS ORDERED: NS IV 1000 ML 1,000 ML IV SCH (16:32)
--- NOTE | 2017-07-26 16:32 | Cardiac Procedure Note-CS/ASA ---
Pre-Procedure Note Pre-Op Procedure Note H&P Reviewed The H&P was reviewed, patient examined and no changes noted. Date H&P Reviewed: Jul 26, 2017 Time H&P Reviewed: 15:40 Conscious Sedation Pre-Proced Time Reviewed: 15:40 ASA Class: 3 Airway Mallampati Classification: ([place] appropriate class) I. II. III, IV Lungs Heart ASA score ASA 1: a normal healthy patient ASA 2: a patient with a mild systemic disease (mid diabetes, controlled hypertension, obesity ASA 3: a patient with a severe systemic disease that limits activity (angina , COPD, prior Myocardial infarction) ASA 4: a patient with an incapacitating disease that is a constant threat to life (CHF, renal failure) ASA 5: a moribund patient not expected to survive 24 hrs. (ruptured aneurysm) ASA 6: a declared brain patient whose organs are being harvested. For emergent operations, add the letter E after the classification Grade 3 Sedation Plan: Analgesia, Amnesia, Plan communicated to team members, Discussed options with patient/fam, Discussed risks with patient/fam Note The patient is an appropriate candidate to undergo the planned procedure, sedation, and anesthesia. The patient immediately re-assessed prior to indication. GARRISON LAGUERRE MD FACP FAC CCDS Jul 26, 2017 16:32
[2017-07-26] MEDS ORDERED: LISI-556 PO (16:39)
[2017-07-26] MEDS ORDERED: CEFU500T63 PO (16:39)
--- NOTE | 2017-07-26 16:41 | Discharge Inst-Post Device ---
Discharge Inst-Post Device Follow up/Plan Follow up at Dr Mireles's office on Saturday07/29/17 Heart Healthy Diet Do not lift arm on side of device placement above head for 1 week Do not push and pull heavy objects for 1 week Activity as tolerated. Leave dressing on until follow up at the office. GARRISON MIRELES MD FACP FAC CCDS Jul 26, 2017 16:41
--- NOTE | 2017-07-26 16:42 | Discharge Inst-Cardiology ---
Discharge Inst-Cardiac Discharge Medications New Medications: Cefuroxime Axetil (Cefuroxime) 500 Mg Tablet 500 MG PO BID, #10 TAB 0 Refills Lisinopril (Lisinopril) 5 Mg Tablet 5 MG PO DAILY, #90 TAB 3 Refills Continued Medications: Aspirin (Aspirin EC) 81 Mg Tablet.dr 81 MG PO DAILY, TAB Atorvastatin Calcium (Atorvastatin Calcium) 80 Mg Tablet 80 MG PO DAILY, TAB Carvedilol (Carvedilol) 25 Mg Tablet 25 MG PO BID, TAB Diazepam (Diazepam) 10 Mg Tablet 10 MG PO BID PRN for ANXIETY, TAB Gabapentin (Gabapentin) 800 Mg Tablet 800 MG PO QID, TAB Mometasone/Formoterol (Dulera 200 Mcg/5 Mcg Inhaler) 13 Gm Hfa.aer.ad 2 PUFF IH DAILY, INHALER Orphenadrine Citrate (Orphenadrine Citrate) 100 Mg Tablet.er 100 MG PO BID PRN for MUSCLE SPASMS, TAB Oxycodone HCl (Oxycodone HCl) 30 Mg Tablet 30 MG PO Q3H PRN for PAIN-SEVERE, TAB Prednisone (Prednisone) 2.5 Mg Tablet 2.5 MG PO DAILY, TAB GARRISON LAGUERRE MD FACP FAC CCDS Jul 26, 2017 16:42
[2017-07-26] MEDS ORDERED: PATIENT MAY USE OWN MEDS, ALL PO SCH (16:45)
--- NOTE | 2017-07-26 17:06 | Cardiology Discharge Summary ---
Diagnosis/Chief Complaint Date of Admission Jul 25, 2017 at 15:02 Date of Discharge 07/26/17 Final/Discharge Diagnosis S/p dual chamber AICD pulse generator change on 07/26/17 Dual chamber AICD implant on 11-30-[address] Mireles. Device functioning per interrogation of August 2016. Device interrogation of July 25, 2017 showed battery depletion advisory Syncopal episode of undetermined etiology in May 2017 Echo of 07/26/17: mod global hypokinesis of the LV, LVEF 40-45%, PASP 30 mmHg Cardiac cath of July [address] lKein showed dilated NICM, LVEF 20% Non-ischemic dilated cardiomyopathy, LVEF 20-30% per cardiac cath of July 2014 and again on echocardiogram of October 2014 No evidence of YINA per sleep study by Dr. Emmanuel August 2014 HTN HLP Sarcoidosis Tobaccoism - cessation advised Chief Complaint/HPI Chief Complaint/HPI Please refer to H&P of 07/25/17 and to the progress note of 07/26/17 for hospital course Discharge Summary Procedures Echo on 07/26/17 Dual chamber AICD pulse gen change on 07/26/17 Discussion & Recommendations Home Medications Reviewed patient Home Medication Reconciliation Form Discharge Home Medications: Reviewed and agree with Discharge Medication list on patient's Discharge Instruction sheet Instructions to patient/family Follow up at Dr Mireles's office on Saturday07/29/17 Clinical Quality Measures DVT/VTE Risk/Contraindication: Risk Factor Score Per Nursin RFS Level Per Nursing on Admit: 4+=Very High GARRISON MIRELES MD FACP FAC CCDS Jul 26, 2017 17:06
[2017-07-26] MEDS ORDERED: CEFDINIR 300 MG (OMNICEF) CAP PO NR (17:30)
[2017-07-26] MEDS ORDERED: ATORVASTATIN 80 MG (LIPITOR) TABLET PO SCH (21:00)
[2017-07-26] MEDS ORDERED: CARVEDILOL 25 MG PO SCH (21:00)
--- NOTE | 2017-07-27 05:24 | OPERATIVE REPORT ---
DATE OF SERVICE: 07/26/2017 PREOPERATIVE DIAGNOSIS: Dual-chamber pacemaker defibrillator end of life. POSTOPERATIVE DIAGNOSIS: Dual-chamber pacemaker defibrillator end of life. SURGEON: Ketan Mireles MD ESTIMATED BLOOD LOSS: Less than 10 mL. INDICATIONS FOR SURGERY: The patient is a 46-year-old man who had a dual-chamber pacemaker defibrillator implanted for dilated cardiomyopathy on 11/30/2014. Device interrogation on 07/25/2017 indicated that the device had reached end of life. This is a [employer] device that is under advisory for possible rapid battery depletion. Device replacement was carried out today after having obtained an informed consent. DESCRIPTION OF PROCEDURE: He was brought to the cardiac catheterization laboratory in a fasting state. The left prepectoral area is the site of device implantation. This was prepared and draped in the usual sterile fashion. Fluoroscopy was carried out to barbara the device and the leads. Subsequently, 1% lidocaine was used for local anesthesia and sharp and blunt dissection was used to open the pacemaker pocket and remove the device from the pocket and detach it from the leads. The detached device is [employer], model [id number], with serial #[id number]. This device was detached from the leads and a new device was attached. This is a [employer], model [id number], with serial #[id number]. The leads were functioning normally. Atrial capture threshold is 1 volt at 0.5 milliseconds and P waves are measured at 1.6 millivolts. Ventricular capture threshold is 0.5 volts at 0.5 milliseconds and R waves are measured at 12 millivolts. Atrial lead impedance is 350 ohms and ventricular lead impedance is 690 ohms. VT1 zone is at 150 beats per minute and is monitor only. VT2 zone is at 187 beats per minute and ventricular fibrillation zone is at 214 beats per minute. This device is functioning normally. The pacemaker pocket was thoroughly irrigated with an antibiotic solution. Good hemostasis was assured. The new device and the leads were placed in the previous pocket and the pocket was closed in 2 layers using 3.0 Vicryl. The patient tolerated the procedure well. A repeat fluoroscopy was carried out after completion of the procedure and the site appears intact without any complications. Job ID: [id number] DocumentID: [id number] Dictated Date: 07/26/2017 16:51:55 [facility] [employer] Date: 07/27/2017 00:54:40 Dictated By: KETAN MIRELES MD, MA, FACP, FACC,
--- OUTSIDE RECORDS SUMMARY | 2017-07-29 16:00 | XMS REPORT | Continuity of Care Document ---
Author Author [employer] Organization [facility] Address Unknown Phone Unavailable Care Team Providers Care Controller Instructor Name Role Phone [employer] Unavailable Unavailable Problems Medications Allergies, Adverse Reactions, Alerts Immunizations Results Vital Signs Encounters Location Location Details Encounter Type Encounter Number Reason For Visit Attending Provider ADM Date DC Date Status Source Lisandro MILAN Active [facility] Procedures Plan of Care Social History Assessment and Plan Family History Value Date Source Advance Directives Order Name Results Value Date Source
--- OUTSIDE RECORDS SUMMARY | 2017-07-29 16:02 | XMS REPORT | Encounter Summary ---
Author Author [facility] Organization [facility] Address Unknown Phone Unavailable Care Team Providers Care Wood Flooring Specialist Name Role Phone PCP Unavailable Encounter Details Date Type Department Care Team Description 05/02/2017 [facility] Horace Pena MD Sarcoidosis, unspecified Encounter [address] (HCC) [place] [address] [address] [place] [address] [phone] Social History Tobacco Use Types Packs/Day Years [...] Reference range: 8 to 53 Unit: U[facility] Specimen Performing Laboratory Blood REFERENCE LAB * SED RATE (05/02/2017 3:07 PM) Component Value Ref Range Sed Rate -ESR 8 0 - 15 MM/HR Specimen Performing Laboratory Blood [facility] MAIN [facility] [address] [place] [address] * COMPREHENSIVE METABOLIC PANEL (05/02/2017 3:06 PM) [...] Specimen Performing Laboratory Blood MAIN LAB [address] [place] [address] * C REACTIVE PROTEIN (CRP) (05/02/2017 3:06 PM) Component Value Ref Range C-Reactive Protein 1.63 (H) <1.0 MG/DL Specimen Performing Laboratory Blood [facility]IN [facility] [address] [place] [address] * CBC AND DIFF (05/02/2017 3:06 PM) [...] Specimen Performing Laboratory Blood MAIN LAB [address] [place] [address] in this encounter Visit Diagnoses Diagnosis Sarcoidosis [...]
--- OUTSIDE RECORDS SUMMARY | 2017-07-29 16:02 | XMS REPORT | Clinical Summary ---
Author Author [facility] Organization [facility] Address Unknown Phone Unavailable Care Team Providers Care Developer Relations Manager Name Role Phone PCP Unavailable Source Comments Some departments are not documenting in the electronic medical record. If you do not see the information that you expected, contact Release of Information in the Health Information Management department at [phone] for further assistance in locating additional records.[facility] Allergies Active Allergy Reactions Severity Noted [...] Pain Active Problems Problem Noted Date Sarcoidosis ([facility]) 02/22/2015 Polyarthralgia 11/25/2014 Myalgia 11/25/2014 History of sarcoidosis 11/25/2014 Nonischemic cardiomyopathy ([facility]) 11/25/2014 Pulmonary nodule 11/25/2014 Fatigue 11/25/2014 Chest pain 11/25/2014 Encounters Date Type Specialty Care Team Description 05/02/2017 [facility] Horace Pena MD Sarcoidosis, unspecified Encounter ([facility]) 05/02/2017 Office Visit Allergy,Immunology and Horace Pena MD Sarcoidosis ([facility]) Rheumatology (Primary Dx);Chronic chest pain;Chronic fatigue;Polyarthralgia;No nischemic cardiomyopathy ([facility]) 04/29/2017 Telephone Allergy,Immunology and Horace Pena MD [...] Reference range: 8 to 53 Unit: U[facility] Specimen Performing Laboratory Blood REFERENCE LAB * SED RATE (05/02/2017 3:07 PM) Component Value Ref Range Sed Rate -ESR 8 0 - 15 MM/HR Specimen Performing Laboratory Blood MAIN LAB [address] [place] [address] * CBC AND DIFF (05/02/2017 3:06 PM) [...] K/UL Specimen Performing Laboratory Blood MAIN LAB [address] [place] [address] * C REACTIVE PROTEIN (CRP) (05/02/2017 3:06 PM) Component Value Ref Range C-Reactive Protein 1.63 (H) <1.0 MG/DL Specimen Performing Laboratory Blood MAIN LAB [address] [place] [address] * COMPREHENSIVE METABOLIC PANEL (05/02/2017 3:06 PM) [...] Performing Laboratory Blood [facility] MAIN [facility] [address] [place] [address] from Last 3 Months
--- OUTSIDE RECORDS SUMMARY | 2017-07-29 16:02 | XMS REPORT | Encounter Summary ---
Author Author [facility] Organization [facility] Address Unknown Phone Unavailable Care Team Providers Care Balance Engineer Name Role Phone PCP Unavailable Reason for Visit * Reason Comments General Question Encounter Details Date Type Department Care Team Description 04/29/2017 Telephone [facility] Horace Pena MD General Question Physicians - Internal [address] [facility] Medicine [address] [place] [address] [address] [facility] [phone] [place] [address] Social History Tobacco Use Types [...] 11/05/16. Pt requested results be faxed to cosmetic sales consultant Dr. Green. Then informed pt that his next appt is at 1600. Pt stated understanding. Faxed result to Dr. Green. in this encounter Plan of Treatment Not on fileas of this encounter Visit Diagnoses Not on filein this encounter
--- OUTSIDE RECORDS SUMMARY | 2017-07-29 16:02 | XMS REPORT | Encounter Summary ---
Author Author [facility] Organization [facility] Address Unknown Phone Unavailable Care Team Providers Care Case Worker Name Role Phone PCP Unavailable Reason for Visit * Reason Comments Joint Pain Encounter Details Date Type Department Care Team Description 05/02/2017 Office Visit [facility] Horace Pena MD Sarcoidosis ([facility]) Physicians - Internal [address] (Primary Dx);Chronic Medicine [address] chest pain;Chronic [address] [place] [address] fatigue;Polyarthralgia;No [address] MED [phone] nischemic cardiomyopathy OFFICE BLDG ([facility] [place] [place] [address] Social History Tobacco Use Types [...] Reference range: 8 to 53 Unit: U/L [facility] Specimen Performing Laboratory Blood REFERENCE LAB * SED RATE (05/02/2017 3:07 PM) Component Value Ref Range Sed Rate -ESR 8 0 - 15 MM/HR Specimen Performing Laboratory Blood [facility] MAIN [facility] [address] [place] [address] * COMPREHENSIVE METABOLIC PANEL (05/02/2017 3:06 PM) [...] Performing Laboratory Blood [facility] MAIN [facility] [address] [place] [address] * C REACTIVE PROTEIN (CRP) (05/02/2017 3:06 PM) Component Value Ref Range C-Reactive Protein 1.63 (H) <1.0 MG/DL Specimen Performing Laboratory Blood [facility] MAIN [facility] [address] [place] [address] in this encounter Visit Diagnoses Diagnosis Sarcoidosis (HCC) - Primary Sarcoidosis Chronic chest pain Chest pain, unspecified Chronic fatigue Other malaise and fatigue Polyarthralgia Pain in joint, multiple sites Nonischemic cardiomyopathy (HCC) Other primary cardiomyopathies in this encounter
== END 2017-07-26 19:33 | disposition home or self-care (01) ==
LOC: CATH 15:02 → ICU 15:02 → UNDOADMOB 15:02 → EDSTATUS 15:49 → CATH 07-26 19:33 → UNDODISOB 07-26 19:33
PROVIDERS: ATTEND Internal Medicine Cardiovascular Disease
DX: Z45.010 Encounter for checking and testing of cardiac pacemaker pulse generator [battery] (principal); I42.9 Cardiomyopathy, unspecified; I10 Essential (primary) hypertension; E78.5 Hyperlipidemia, unspecified; D86.9 Sarcoidosis, unspecified; F17.210 Nicotine dependence, cigarettes, uncomplicated
CPT/HCPCS: 33263; 36415; 71020; 80053; 83735; 85027; 85610; 93306

== ENCOUNTER → 2017-09-04 | Outpatient (CLI) | payer MEDICARE, OTHER ==
[~2017-09-04] MED LIST changes: +ASPI-983 PO; +ATOR80TA76 PO; +CEFU500T63 PO; +LISI-556 PO; +MOME13HF IH; +ORPH100T PO; +OXYC30TA80 PO; +PRED2.5T PO
--- NOTE | 2017-09-04 10:20 | Diagnostic Imaging Report ---
EXAMINATION: Three views of the left wrist. INDICATION: Left wrist pain. FINDINGS: There are sclerotic changes seen in the scaphoid and in the radial aspect of the lunate bone. There is also fragmentation seen at the scaphoid. This is probably secondary to an old injury with possible osteonecrosis. There is also widening of the scapholunate interval favoring a ligamentous injury. No definite acute fracture. No radiopaque foreign body. No subluxation or dislocation. 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 No definite acute fracture. If there is clinical suspicion of an acute fracture, a CT scan of the wrist would be helpful. Dictated by: Dictated on workstation # [id number]
== END ==
LOC: RAD 09:45
DX: M25.532 Pain in left wrist (principal)
CPT/HCPCS: 73110

== ENCOUNTER → 2017-09-09 | Outpatient (CLI) | payer MEDICARE, OTHER ==
--- NOTE | 2017-09-09 14:03 | Diagnostic Imaging Report ---
PROCEDURE: CT left upper extremity without contrast. TECHNIQUE: Multiple contiguous axial images were obtained through the left upper extremity without the use of intravenous contrast. INDICATION: Left wrist pain. FINDINGS: There is evidence of an old comminuted fracture involving the proximal and mid aspects of the scaphoid with collapse of the proximal scaphoid which could be related to avascular necrosis. This is associated with proximal migration of the capitate and ventral displacement and rotation of the lunate relative to the capitate and the radial articular surface. There are also subchondral sclerotic changes of the radial scaphoid joint and joint space narrowing. The other carpal bones demonstrate no abnormal sclerosis or evidence of fracture. The bone alignment in the MCP joints and interphalangeal joints appears unremarkable. No soft tissue mass is identified. No fluid collection is seen. The tendons and muscles of the hand and around the wrist appear grossly unremarkable. IMPRESSION: Findings of old comminuted fracture of the proximal scaphoid with loss of its height and sclerotic changes which is suggestive of superimposed avascular necrosis. There is also ventral rotation and subluxation of the lunate relative to the capitate and the radial articular surface. 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 Dictated by: Dictated on workstation # [id number]
== END ==
LOC: RAD 11:28
DX: S53.002A Unspecified subluxation of left radial head, initial encounter (principal)
CPT/HCPCS: 73200

== ENCOUNTER → 2017-11-26 | Outpatient (CLI) | payer MEDICARE, OTHER ==
--- NOTE | 2017-11-26 13:29 | Diagnostic Imaging Report ---
PROCEDURE: CT cervical spine without contrast. TECHNIQUE: Multiple contiguous axial images were obtained through the cervical spine without the use of intravenous contrast. Sagittal and coronal reformations were then performed. INDICATION: Right upper extremity weakness. COMPARISON: None available. FINDINGS: There is straightening of the cervical spine which could be positional or degenerative in nature. No spondylolisthesis. No fracture or ankylosis of the vertebral bodies or posterior elements. By non-myelogram CT, there is no evidence of high-grade spinal stenosis. At C5-C6, there is a central disc protrusion which appears to result in mild spinal stenosis. No significant narrowing of the neuroforamen within the cervical spine. Thyroid is normal. The lung apices are clear. No cervical lymphadenopathy. Minimal calcified plaquing in the carotid bulbs. IMPRESSION: 1. No moderate or high-grade stenosis of the spinal canal or neuroforamen within the cervical spine. 2. Small central disc protrusion at C5-C6 appears to result in no more than mild spinal stenosis. 3. Straightening of the cervical spine without acute or concerning osseous abnormality. Dictated by: Dictated on workstation # [id number]
== END ==
LOC: RAD 09:35
DX: M50.122 Cervical disc disorder at C5-C6 level with radiculopathy (principal)
CPT/HCPCS: 72125

== ENCOUNTER → 2018-01-16 | Outpatient (CLI) | payer MEDICARE, OTHER ==
--- NOTE | 2018-01-16 14:09 | Diagnostic Imaging Report ---
INDICATION: Preop for knee replacement surgery. TIME OF EXAMINATION: 10:48 a.m. COMPARISON: Correlation is made with prior study 07/26/2017. FINDINGS: Heart size is normal. Cardiac defibrillator remains in place. Lungs are clear. No infiltrate or failure is seen. No effusion or pneumothorax is identified. IMPRESSION: Stable chest. No acute features detected. Dictated by: Dictated on workstation # [id number]
== END ==
LOC: RAD 10:19
PROVIDERS: ATTEND Nurse Practitioner Family
DX: Z01.818 Encounter for other preprocedural examination (principal); D86.0 Sarcoidosis of lung
CPT/HCPCS: 71046

== ENCOUNTER → 2018-03-28 | Outpatient (CLI) | payer MEDICARE, OTHER ==
--- NOTE | 2018-03-28 11:55 | Diagnostic Imaging Report ---
PROCEDURE: CT lumbar spine without contrast. TECHNIQUE: Multiple contiguous axial images were obtained through the lumbar spine without the use of intravenous contrast. Sagittal and coronal reformations were then performed. INDICATION: Low back pain. FINDINGS: Curvature and alignment of the lumbar spine is normal. Vertebral body heights are maintained. Disc spaces are fairly well preserved apart from some disc space narrowing at the T12-L1 and L1-L2 levels compatible with degenerative disc disease. No fractures are identified. Bony canal appears to be patent. Paraspinous tissues are unremarkable. IMPRESSION: Mild lumbar spondylosis. No acute bony abnormality is detected. If symptoms persist, MRI of the lumbar spine may be useful for further evaluation. Dictated by: Dictated on workstation # [id number]
== END ==
LOC: RAD 10:56
DX: M47.816 Spondylosis without myelopathy or radiculopathy, lumbar region (principal)
CPT/HCPCS: 72131

== ENCOUNTER → 2018-05-07 | Outpatient (CLI) | payer MEDICARE, OTHER ==
[2018-05-07 15:07] LABS: HEMOGLOBIN 14.5 G/DL (13.3-17.7); MEAN PLATELET VOLUME 10.5 FL (7.4-10.4); RED BLOOD COUNT 4.65 10^6/uL (4.35-5.85); RED CELL DISTRIBUTION WIDTH 13.6 % (10.0-14.5)
[2018-05-07 15:26] LABS: ALANINE AMINOTRANSFERASE 21 U/L (0-55); ALBUMIN 4.1 GM/DL (3.2-4.5); ALKALINE PHOSPHATASE 94 U/L (40-136); BILIRUBIN,TOTAL 0.7 MG/DL (0.1-1.0); BUN/CREATININE RATIO 9; CALCIUM 9.2 MG/DL (8.5-10.1); CARBON DIOXIDE 23 MMOL/L (21-32); CHLORIDE 103 MMOL/L (98-107); CREATININE SERUM 0.96 MG/DL (0.60-1.30); GFR ESTIMATED > 60; GLUCOSE 170 MG/DL (70-105); POTASSIUM 4.4 MMOL/L (3.6-5.0); SODIUM 136 MMOL/L (135-145); TOTAL PROTEIN 6.7 GM/DL (6.4-8.2)
[2018-05-07 16:08] LABS: BILIRUBIN,URINE NEGATIVE (NEGATIVE); CLARITY,URINE CLEAR; COLOR,URINE YELLOW; GLUCOSE, URINE (UA) NEGATIVE (NEGATIVE); KETONES,URINE NEGATIVE (NEGATIVE); LEUKOCYTE ESTERASE ,URINE 1+ (NEGATIVE); NITRITE,URINE NEGATIVE (NEGATIVE); PH,URINE 8 (5-9); PROTEIN,URINE NEGATIVE (NEGATIVE); UROBILINOGEN,URINE 4 MG/DL (NORMAL)
[2018-05-07 16:19] LABS: AMORPHOUS SEDIMENT,UR FEW AMOR PHOSPHATE /LPF; WBC,URINE 0-2 /HPF
== END ==
LOC: LAB 14:50
PROVIDERS: ATTEND Orthopaedic Surgery
DX: Z01.812 Encounter for preprocedural laboratory examination (principal); Z11.2 Encounter for screening for other bacterial diseases; M87.9 Osteonecrosis, unspecified
CPT/HCPCS: 36415; 80053; 81000; 85027; 87081

== ENCOUNTER → 2018-05-30 | Outpatient (CLI) | payer MEDICARE, OTHER ==
[2018-05-30 15:07] LABS: BASOPHILS % (AUTO) 0 % (0-10); EOSINOPHILS # (AUTO) 0.1 10^3/uL (0.0-0.3); EOSINOPHILS % (AUTO) 1 % (0-10); HEMATOCRIT 41 % (40-54); HEMOGLOBIN 14.3 G/DL (13.3-17.7); LYMPHOCYTES # (AUTO) 1.3 X 10^3 (1.0-4.0); LYMPHOCYTES % (AUTO) 14 % (12-44); MEAN CORPUSCULAR HEMOGLOBIN 31 PG (25-34); MEAN CORPUSCULAR HGB CONC 35 G/DL (32-36); MEAN CORPUSCULAR VOLUME 91 FL (80-99); MEAN PLATELET VOLUME 10.1 FL (7.4-10.4); MONOCYTES # (AUTO) 0.7 X 10^3 (0.0-1.0); MONOCYTES % (AUTO) 8 % (0-12); NEUTROPHILS # (AUTO) 7.3 X 10^3 (1.8-7.8); NEUTROPHILS % (AUTO) 78 % (42-75); PLATELET COUNT 182 10^3/uL (130-400); RED BLOOD COUNT 4.56 10^6/uL (4.35-5.85); RED CELL DISTRIBUTION WIDTH 13.8 % (10.0-14.5); WHITE BLOOD COUNT 9.4 10^3/uL (4.3-11.0)
[2018-05-30 15:27] LABS: ALANINE AMINOTRANSFERASE 23 U/L (0-55); ALBUMIN 4.2 GM/DL (3.2-4.5); ALKALINE PHOSPHATASE 89 U/L (40-136); BILIRUBIN,TOTAL 0.8 MG/DL (0.1-1.0); BUN/CREATININE RATIO 15; CALCIUM 9.3 MG/DL (8.5-10.1); CARBON DIOXIDE 25 MMOL/L (21-32); CHLORIDE 103 MMOL/L (98-107); CREATININE SERUM 0.96 MG/DL (0.60-1.30); GFR ESTIMATED > 60; GLUCOSE 115 MG/DL (70-105); MAGNESIUM 2.4 MG/DL (1.8-2.4); SODIUM 136 MMOL/L (135-145); TOTAL PROTEIN 6.5 GM/DL (6.4-8.2)
[2018-05-30 15:47] LABS: DIGOXIN 1.16 NG/ML (0.80-2.00)
== END ==
LOC: LAB 14:53
PROVIDERS: ATTEND Internal Medicine Cardiovascular Disease
DX: I47.1 Supraventricular tachycardia (principal); R06.02 Shortness of breath; I25.5 Ischemic cardiomyopathy; E78.5 Hyperlipidemia, unspecified
CPT/HCPCS: 36415; 80053; 80162; 83735; 84443; 85025

== ENCOUNTER → 2018-05-30 | Outpatient (CLI) | payer MEDICARE, OTHER ==
--- NOTE | 2018-05-30 15:37 | Diagnostic Imaging Report ---
INDICATION: Back pain. TIME OF EXAM: 3:31 PM FINDINGS: Curvature and alignment of the thoracic spine is normal. There is generalized degenerative disc disease with variable disc space narrowing and marginal spurring. Vertebral body heights appear stable. No acute compression fracture is identified. The paraspinous line is intact. Pedicles appear intact. IMPRESSION: Thoracic spondylosis. No acute bony abnormality is detected. Dictated by: Dictated on workstation # [id number]
--- NOTE | 2018-05-30 16:08 | Diagnostic Imaging Report ---
INDICATION: Sarcoidosis and back pain. TIME OF EXAMINATION: 03:29 p.m. COMPARISON: Comparison is made with prior chest from 01/16/2018. FINDINGS: The heart size is stable. Cardiac defibrillator remains in place. Hilar configuration is stable. Pulmonary parenchyma appears clear. No effusion or pneumothorax is seen. IMPRESSION: Stable chest. No acute feature is detected. Dictated by: Dictated on workstation # [id number]
== END ==
LOC: RAD 14:47
DX: D86.0 Sarcoidosis of lung (principal); M47.814 Spondylosis without myelopathy or radiculopathy, thoracic region
CPT/HCPCS: 71046; 72070

== ENCOUNTER → 2018-07-11 | Outpatient (CLI) | payer MEDICARE, OTHER ==
[~2018-07-11] MED LIST changes: +IOHEXOL 350 MG/ML 100 ML (OMNIPAQUE 350) VIAL IV ONE; +NS 250 ML (IVPB) BAG IV ONE
--- NOTE | 2018-07-11 09:44 | Diagnostic Imaging Report ---
PROCEDURE: CT abdomen and pelvis with and without contrast. TECHNIQUE: Precontrast acquisitions were acquired through the abdomen and pelvis. Multiple contiguous axial images were obtained through the abdomen and pelvis after the administration of intravenous contrast. INDICATION: Abdominal pain with unintentional weight loss over the last 5 months. No prior studies are available for comparison. FINDINGS: Imaging through lung bases demonstrate lung bases to be clear. There is some questionable soft tissue adjacent to the distal esophagus, only partly included on this exam. Dedicated CT chest would be recommended for further evaluation. No discrete liver mass is identified. The gallbladder is surgically absent. The pancreas and spleen are unremarkable. No adrenal mass is detected. Kidneys are unremarkable. Aorta is non-aneurysmal. No central retroperitoneal or mesenteric lymphadenopathy is seen. The visualized small and large bowel loops are normal caliber. There is no ascites. There is a large amount of artifact in the pelvis from patient's bilateral hip prostheses. This does obscure the bladder. No definite pelvic lymphadenopathy is seen although images are obscured. Bony structures are nonacute. IMPRESSION: 1. Unremarkable CT of the abdomen and pelvis. No abdominal or pelvic lymphadenopathy or metastatic disease is seen. 2. Abnormal soft tissue posterior to left atrium and adjacent to the distal esophagus, only partly included on this study. Dedicated CT chest would be recommended for further evaluation. Dictated by: Dictated on workstation # [id number]
== END ==
LOC: RAD 08:53
DX: M79.89 Other specified soft tissue disorders (principal); R63.4 Abnormal weight loss; R10.0 Acute abdomen
CPT/HCPCS: 74178

== ENCOUNTER 2018-07-18 11:29 | Outpatient (RCR) | payer MEDICARE, OTHER ==
[~2018-07-18 11:29] MED LIST changes: -IOHEXOL 350 MG/ML 100 ML (OMNIPAQUE 350) VIAL IV ONE; -NS 250 ML (IVPB) BAG IV ONE
== END 2018-09-03 10:39 | disposition home or self-care (01) ==
PROVIDERS: ATTEND Orthopaedic Surgery
DX: Z47.1 Aftercare following joint replacement surgery (principal); Z96.642 Presence of left artificial hip joint

== ENCOUNTER → 2018-07-18 | Outpatient (CLI) | payer MEDICARE, OTHER ==
--- NOTE | 2018-07-18 09:10 | Diagnostic Imaging Report ---
PROCEDURE: CT chest with contrast only. TECHNIQUE: Multiple contiguous axial images were obtained through the chest after administration of intravenous contrast. INDICATION: Abnormal recent CT abdomen and pelvis with abnormal soft tissue identified in mediastinum. Study is performed for further evaluation. Correlation is made with recent CT abdomen and pelvis study from 07/11/2018. In addition, comparison is made with prior CT chest from 08/27/2014 as well as 01/15/2007. Left chest wall cardiac pacemaker is in place. No axillary lymphadenopathy is seen. There is bulky lymphadenopathy in the mediastinum and maría bilaterally. There are some calcifications within the lymph nodes in the maría bilaterally as well as in the right paratracheal and prevascular nodes as well as subcarinal nodes. When comparing with study dating back to 2006, this has been present and is actually somewhat less prominent when compared with priors. The soft tissue noted on recent CT abdomen and pelvis correlates with subcarinal lymphadenopathy. This too has been present for long time. No pericardial or pleural fluid is seen. Pulmonary parenchymal evaluation does show a 6 mm nodule in the right upper lobe. This does not appear to be calcified but could still represent a noncalcified granuloma. This was not well-seen on prior CTs. Tiny nodular density posterolateral left lower lobe is seen, image 41 of 4 mm. Mild interstitial nodular changes in the right upper lobe in the anterior apex is seen. IMPRESSION: 1. Mediastinal and hilar lymphadenopathy, similar to improved when compared with CTs dating back to 2007. This may be secondary to granulomatous process such as sarcoid. 2. Right upper lobe and left lower lobe micronodules. Followup CT chest in 6 months could be performed to confirm stability. Dictated by: Dictated on workstation # [id number]
== END ==
LOC: RAD 08:34
DX: R59.0 Localized enlarged lymph nodes (principal); R91.8 Other nonspecific abnormal finding of lung field; K22.8 Other specified diseases of esophagus
CPT/HCPCS: 71260

== ENCOUNTER → 2018-10-06 | Outpatient (CLI) | payer MEDICARE, OTHER ==
--- NOTE | 2018-10-06 15:22 | Diagnostic Imaging Report ---
PROCEDURE: CT left upper extremity without contrast. TECHNIQUE: Multiple contiguous axial images were obtained through the left upper extremity without the use of intravenous contrast. INDICATION: Wrist fracture and left wrist pain. FINDINGS: The distal radius and ulna appear to be intact. There appears to be fragmentation of the proximal pole of the scaphoid consistent with prior fracture, age-indeterminate. There also appears to be some sclerosis and volume loss involving the proximal pole of the scaphoid suggestive of osteonecrosis. There are some fragments displaced dorsally. Majority of the fracture fragments appear to be fairly well corticated, suggestive of a chronic unhealed fracture. There appears to be some dorsal rotation of the lunate on the sagittal reconstructions. No acute lunate fracture is seen. Scapholunate space is maintained although there does appear to be slight proximal migration of the capitate owing to volume loss of the proximal pole of the scaphoid. No other carpal bone fracture is seen. Metacarpals are intact. IMPRESSION: There appears to be a chronic appearing fracture involving the proximal pole of the scaphoid which demonstrates some sclerosis and volume loss consistent with osteonecrosis. There is fragmentation with numerous unhealed fracture fragments present. There also appears to be some slight proximal migration of the capitate and dorsal rotation of the lunate which may indicate some dorsal instability. No acute fracture lines are identified. Dictated by: Dictated on workstation # [id number]
== END ==
LOC: RAD 13:46
PROVIDERS: ATTEND Orthopaedic Surgery
DX: S62.102A Fracture of unspecified carpal bone, left wrist, initial encounter for closed fracture (principal); M25.332 Other instability, left wrist
CPT/HCPCS: 73200

== ENCOUNTER → 2018-12-25 | Outpatient (CLI) | payer MEDICARE, OTHER ==
[~2018-12-25] MED LIST changes: +GABA800T10 PO
== END ==
LOC: CARD 08:44
PROVIDERS: ATTEND Nurse Practitioner Family
DX: I50.22 Chronic systolic (congestive) heart failure (principal); I42.0 Dilated cardiomyopathy; I47.1 Supraventricular tachycardia; Z72.0 Tobacco use
CPT/HCPCS: 93306

== ENCOUNTER → 2019-01-07 | Outpatient (CLI) | payer MEDICARE, OTHER ==
--- NOTE | 2019-01-07 18:50 | Diagnostic Imaging Report ---
PROCEDURE: CT right upper extremity without contrast. TECHNIQUE: Multiple contiguous axial images were obtained through the right upper extremity without the use of intravenous contrast. Sagittal and coronal reformations were then performed. Auto Exposure Controls were utilized during the CT exam to meet ALARA standards for radiation dose reduction. INDICATION: Right shoulder pain with no known injury, cannot lift arm above shoulder. FINDINGS: Noncontrast CT imaging of the right shoulder demonstrates the superior joint space to be markedly narrowed consistent with a chronic rotator cuff tear. Subchondral cysts and erosions are seen in the humeral head. Mild irregularities are seen in the glenoid. Small osteophytes are seen off of the humeral head. Acromioclavicular joint appears normal. No fluid collections are present. In the right third rib, there is a sclerotic lesion measuring 18 mm. No expansion is present. A bone scan or an MRI could be helpful to evaluate if this is malignant or not. Visualized portions of the right lung appear normal. IMPRESSION: 1. There are [id number] degenerative changes of the right shoulder. Findings are consistent with chronic rotator cuff tear. 2. There is a sclerotic lesion in the right third rib. Recommend MRI or bone scan for further evaluation to see if this is malignant. Comparison with any previous films of the cervix also be helpful. Dictated by: Dictated on workstation # [id number]
== END ==
LOC: RAD 12:30
DX: M19.011 Primary osteoarthritis, right shoulder (principal); M89.9 Disorder of bone, unspecified
CPT/HCPCS: 73200

== ENCOUNTER → 2019-01-13 | Outpatient (CLI) | payer MEDICARE, OTHER ==
--- NOTE | 2019-01-13 14:00 | Diagnostic Imaging Report ---
INDICATION: Sclerotic lesion in the right third rib. Study is performed for further evaluation. TECHNIQUE: Patient was administered 26.2 mCi technetium-99m MDP intravenously, and whole-body imaging was performed after a 3-hour delay. COMPARISON: Correlation is made with recent CT of the right upper extremity from 01/07/2019. FINDINGS: Normal uptake of activity by the axial and appendicular skeleton is noted. There is uptake by the kidneys with excretion into the urinary bladder. No abnormal focus of tracer accumulation is identified in the region of the right third rib to correlate with the CT abnormality. There is some mild uptake involving the right anterior fifth rib, nonspecific. This area was not included on recent CT of the right upper extremity. There is mild uptake in bilateral shoulders, right greater, consistent with degenerative change. Mild uptake in the upper portion of the cervical spine is noted. Generalized degenerative uptake in bilateral hips, knees, and feet is noted. IMPRESSION: Degenerative uptake, as described. No abnormal uptake is seen at the area of sclerosis involving the right third rib on recent CT. There is, however, nonspecific mild uptake involving the anterior portion of the right fifth rib. Dictated by: Dictated on workstation # [id number]
== END ==
LOC: RAD 09:10
DX: D49.2 Neoplasm of unspecified behavior of bone, soft tissue, and skin (principal); M89.9 Disorder of bone, unspecified
CPT/HCPCS: 78306

== ENCOUNTER → 2019-01-13 | Outpatient (CLI) | payer MEDICARE, OTHER ==
[2019-01-13 09:40] LABS: ABG BASE EXCESS 1.4 MMOL/L (-2.5-2.5); ABG OXYGEN SATURATION 95 % (94-100); ABG PCO2 39 MMHG (35-45); ABG PH 7.43 (7.37-7.43); ABG PO2 60 MMHG (79-93); ABG TCO2 26.7 MMOL/L (21.0-31.0); ALLENS TEST YES-POS; INSPIRED O2 RA; PATIENT TEMP 96.6; VENTILATOR NO
== END ==
LOC: RT 09:12
PROVIDERS: ATTEND Nurse Practitioner Family
DX: D86.0 Sarcoidosis of lung (principal); R06.02 Shortness of breath; J42 Unspecified chronic bronchitis; R05 Cough; F17.200 Nicotine dependence, unspecified, uncomplicated; E66.9 Obesity, unspecified; R91.8 Other nonspecific abnormal finding of lung field
CPT/HCPCS: 36600; 82805

== ENCOUNTER → 2019-03-18 | Outpatient (CLI) | payer MEDICARE, OTHER ==
[~2019-03-18] MED LIST changes: +HOLD METFORMIN - RECEIVED CONTRAST 20 ML VIAL IV SCH; +IOHEXOL 350 MG/ML 100 ML (OMNIPAQUE 350) VIAL IV ONE; +NS 100 ML (IVPB) BAG IV ONE; +RT-ALBUTEROL SULF 2.5 MG/3 ML PRE-MIX VIAL INH ONE; +RT-ALBUTEROL SULF 2.5 MG/3 ML PRE-MIX VIAL ONE
[2019-03-18 14:34] LABS: BUN/CREATININE RATIO 18; GFR ESTIMATED > 60
--- NOTE | 2019-03-18 15:01 | Diagnostic Imaging Report ---
PROCEDURE: CT chest with contrast only. TECHNIQUE: Multiple contiguous axial images were obtained through the chest after administration of intravenous contrast. Auto Exposure Controls were utilized during the CT exam to meet ALARA standards for radiation dose reduction. INDICATION: Shortness of air and COPD. Patient has history of sarcoidosis and chronic cough. COMPARISON: Correlation is made with prior CT chest from 07/18/2018. FINDINGS: A left chest wall cardiac pacemaker is noted. No axillary lymphadenopathy is seen. Multiple enlarged mediastinal and hilar lymph nodes, many of which are partially calcified are again noted and appear similar to prior exam. It is likely secondary to the patient's known sarcoidosis. No pericardial or pleural fluid is identified. 6-7 mm nodule in right upper lobe is stable. 4 mm left lower lobe nodule is stable. No new mass is detected. No infiltrates are seen. Upper abdomen is unremarkable. IMPRESSION: Overall stable CT chest when compared with exam from 07/18/2018. Dictated by: Dictated on workstation # [id number]
== END ==
LOC: RT 13:58
PROVIDERS: ATTEND Nurse Practitioner Family
DX: D86.0 Sarcoidosis of lung (principal); R06.02 Shortness of breath; J42 Unspecified chronic bronchitis; R05 Cough; F17.200 Nicotine dependence, unspecified, uncomplicated; R91.8 Other nonspecific abnormal finding of lung field; E66.9 Obesity, unspecified; Z68.36 Body mass index [BMI] 36.0-36.9, adult; Z95.0 Presence of cardiac pacemaker
CPT/HCPCS: 36415; 71260; 82565; 84520; 94060; 94726; 94729

== ENCOUNTER → 2019-07-21 | Outpatient (CLI) | payer MEDICARE, OTHER ==
[~2019-07-21] VITALS: Ht 170 cm; Wt 95.0 kg
[~2019-07-21] MED LIST changes: +CATHETER FLUSH 10 ML SYR IV PRN; -HOLD METFORMIN - RECEIVED CONTRAST 20 ML VIAL IV SCH; -IOHEXOL 350 MG/ML 100 ML (OMNIPAQUE 350) VIAL IV ONE; -NS 100 ML (IVPB) BAG IV ONE; +REGADENOSON 0.4 MG/5 ML SYR (LEXISCAN) IV ONE; -RT-ALBUTEROL SULF 2.5 MG/3 ML PRE-MIX VIAL INH ONE; -RT-ALBUTEROL SULF 2.5 MG/3 ML PRE-MIX VIAL ONE
[2019-07-21 09:09] VITALS: BP 122/84
[2019-07-21 09:35] VITALS: BP 128/78
--- NOTE | 2019-07-21 17:42 | STRESS TEST ---
DATE OF SERVICE: 07/21/2019 RESTING AND POST REGADENOSON TECHNETIUM-99M TETROFOSMIN SPECT CT IMAGING ORDERING PHYSICIAN: Heidy Dominguez APRN PRIMARY PHYSICIAN: Dr. Ryan. OTHER PHYSICIAN: Dr. Laguerre. CLINICAL DIAGNOSES: Coronary artery disease, nonsustained ventricular tachycardia, dilated cardiomyopathy. Baseline images were carried out after injection of 10.58 mCi of technetium-99m Tetrofosmin. This was followed by 0.4 mg regadenoson and 29.1 mCi of technetium-99m Tetrofosmin for stress imaging. Imaging is limited by the fact that the patient had to keep his right arm down for image acquisition. He had to keep his right arm down because of right shoulder pain, for which he is anticipating surgery. Review of images at rest and following stress does not indicate any distinct perfusion defects consistent with significant myocardial ischemia or infarction. This intraventricular septum appears to have diminished count uptake, likely artifactual from the patient's arm being down. These images remained unchanged between stress and resting images. Gated images show well preserved global left ventricular systolic function without any distinct regional wall motion abnormality. Normal septal motion is also seen. Left ventricular ejection fraction is calculated to be 51%. Left ventricular end diastolic volume is 106 mL. TID is absent (1.09). CONCLUSIONS: 1. No evidence of significant myocardial ischemia or infarction on this study. 2. Well preserved global left ventricular systolic function with an ejection fraction of 51%. 3. No significant regional wall motion abnormality. 4. Mild cardiomegaly. Job ID: [id number] DocumentID: [id number] Dictated Date: 07/21/2019 14:15:44 [employer] Installer Date: 07/21/2019 17:40:06 Dictated By: GARRISON LAGUERRE MD, MA, FACP, FACC,
== END ==
LOC: CARD 07:10
PROVIDERS: ATTEND Nurse Practitioner Family
DX: I25.10 Atherosclerotic heart disease of native coronary artery without angina pectoris (principal); I47.2 Ventricular tachycardia; I42.0 Dilated cardiomyopathy; I51.7 Cardiomegaly; E78.5 Hyperlipidemia, unspecified
CPT/HCPCS: 78452; 93017

== ENCOUNTER → 2019-09-29 | Outpatient (CLI) | payer MEDICARE, OTHER ==
[~2019-09-29] MED LIST changes: -CATHETER FLUSH 10 ML SYR IV PRN; -REGADENOSON 0.4 MG/5 ML SYR (LEXISCAN) IV ONE
--- NOTE | 2019-09-29 13:11 | Diagnostic Imaging Report ---
INDICATION: History of vertebral body fractures. Bilateral hip replacements. COMPARISON: None FINDINGS: AP Spine L1-L4: [BMD (g/cm2): 0.931] [T-Score: -2.6] [Z-Score: -3.1] [BMD Previous: na] [BMD % Change: na] LT Hip: Not applicable RT Hip: Not applicable Forearm: Distal one third of the radius bone mineral density measures 1.060 g/sq cm, with a T score of 0.6 and a Z score of 0.6. *Indicates significant change from prior examination based on 95% confidence level. World Health Organization criteria for BMD interpretation classify patients as Normal (T-score at or above -1.0), Osteopenic (T-score between -1.0 and -2.5) or Osteoporotic (T-score at or below -2.5). LIMITATIONS AND MODIFICATION: None. IMPRESSION: 1. Osteoporosis. 2. Baseline examination. 3. See below National Osteoporosis Foundation guidelines on when to potentially initiate pharmacologic therapy. Based on the National Osteoporosis Foundation Guidelines, pharmacologic treatment should be initiated in any of the following, unless clinical conditions suggest otherwise: * Any patient with prior fragility fracture of the hip or vertebrae. A spine fracture indicates 5X risk for subsequent spine fracture and 2X risk for subsequent hip fracture. * Osteoporosis (T-score <-2.5). * Postmenopausal women and men age 50 and older with low bone mass/osteopenia (T-score between -1.0 and -2.5) by DXA and 10-year major osteoporotic fracture greater than 20% or a 10-year probability of hip fracture greater than 3%. These fracture risks are supplied above in the FRAX score, if applicable. * Clinician judgement and/or patient preferences may indicate treatment for people with 10-year fracture probabilities above or below these levels. Dictated by: Dictated on workstation # [id number]
== END ==
LOC: RAD 09:00
DX: M81.0 Age-related osteoporosis without current pathological fracture (principal); Z87.81 Personal history of (healed) traumatic fracture; Z96.643 Presence of artificial hip joint, bilateral
CPT/HCPCS: 77080

== ENCOUNTER → 2020-04-21 | Outpatient (CLI) | payer MEDICARE, OTHER ==
[~2020-04-21] MED LIST changes: +HOLD METFORMIN - RECEIVED CONTRAST 20 ML VIAL IV SCH; +IOHEXOL 350 MG/ML 100 ML (OMNIPAQUE 350) VIAL IV ONE; +NS 100 ML (IVPB) BAG IV ONE; +OXYC-527 PO; -OXYC30TA80 PO
[2020-04-21 09:23] LABS: BUN/CREATININE RATIO 11; CREATININE SERUM 1.14 MG/DL (0.60-1.30); GFR ESTIMATED > 60
--- NOTE | 2020-04-21 10:28 | Diagnostic Imaging Report ---
PROCEDURE: CT chest with contrast only. TECHNIQUE: Multiple contiguous axial images were obtained through the chest after administration of intravenous contrast. Auto Exposure Controls were utilized during the CT exam to meet ALARA standards for radiation dose reduction. INDICATION: Shortness of breath, chronic cough, sarcoidosis, dyspnea. The study compared with exam 03/18/2019 Calcified and noncalcified thoracic lymphadenopathy most notably at the colon. Lower right paratracheal, tracheal mediastinum, bilateral pulmonary maría, subcarinal mediastinum and aorticopulmonary window all unchanged from the previous study. Some mild subpleural fibrotic changes in the upper lobes greatest at the apices anteriorly unchanged. Few benign calcified pulmonary parenchymal granulomatous foci unchanged. No noncalcified lung mass. No evidence for acute pneumonia. No effusion or pneumothorax. The visualized upper abdomen demonstrates no acute finding. The aorta is patent and nonaneurysmal. IMPRESSION: Predominantly apical subpleural scarring and predominantly calcified thoracic lymphadenopathy as well as benign pulmonary parenchymal granulomas are all unchanged. No acute finding identified. Dictated by: Dictated on workstation # [id number]
== END ==
LOC: RAD 09:45
PROVIDERS: ATTEND Nurse Practitioner Family
DX: R06.02 Shortness of breath (principal); R05 Cough; D86.0 Sarcoidosis of lung; R06.00 Dyspnea, unspecified; J44.9 Chronic obstructive pulmonary disease, unspecified; R59.0 Localized enlarged lymph nodes; J84.10 Pulmonary fibrosis, unspecified
CPT/HCPCS: 36415; 71260; 82565; 84520

== ENCOUNTER → 2020-11-14 | Outpatient (CLI) | payer MEDICARE, OTHER ==
[~2020-11-14] MED LIST changes: +ASPI-1238 PO; -ASPI-983 PO; -HOLD METFORMIN - RECEIVED CONTRAST 20 ML VIAL IV SCH; -IOHEXOL 350 MG/ML 100 ML (OMNIPAQUE 350) VIAL IV ONE; -LISI-556 PO; +LISI-729 PO; -NS 100 ML (IVPB) BAG IV ONE
== END ==
LOC: CARD 10:32
PROVIDERS: ATTEND Internal Medicine Cardiovascular Disease
DX: I51.7 Cardiomegaly (principal)
CPT/HCPCS: 93306

== ENCOUNTER → 2022-01-09 | Outpatient (CLI) | payer MEDICARE, OTHER ==
[~2022-01-09] MED LIST changes: -LISI-729 PO; +LISI5TAB20 PO
== END ==
LOC: CARD 10:00
PROVIDERS: ATTEND Nurse Practitioner Family
DX: I42.0 Dilated cardiomyopathy (principal); I51.7 Cardiomegaly
CPT/HCPCS: 93306

== ENCOUNTER → 2022-12-18 | Outpatient (CLI) | payer MEDICARE, OTHER ==
[~2022-12-18] MED LIST changes: +CATHETER FLUSH 10 ML SYR IVP PRN; -MOME13HF IH; +MOME13HF11 IH; +REGADENOSON 0.4 MG/5 ML SYR (LEXISCAN) IV ONE
[2022-12-18 09:44] VITALS: BP 115/68
--- NOTE | 2022-12-18 21:23 | STRESS TEST ---
DATE OF SERVICE: 12/18/2022 RESTING AND POST REGADENOSON TECHNETIUM-99M TETROFOSMIN SPECT CT IMAGING Baseline images were carried out after injection of 10.63 mCi of technetium-99m tetrofosmin. This was followed by 0.4 mg regadenoson and 30 mCi of technetium-99m tetrofosmin for stress imaging. Electrocardiogram showed sinus or paced atrial rhythm. There is a left bundle branch block. The electrocardiogram did not change significantly with the regadenoson infusion. Review of images at rest and following stress indicate diminished count uptake in the septum and the apical morales on both at rest and following regadenoson infusion. Gated images show global hypokinesis. There is no specific regional wall motion abnormality. Left ventricular ejection fraction is calculated to be 39%. Left ventricular end-diastolic volume is 119 mL CONCLUSION: Dilated cardiomyopathy with cardiomegaly and global hypokinesis of left ventricle with a calculated ejection fraction 39%. There does not appear to be distinct myocardial infarction or regional wall motion abnormalities. Job ID: [id number] DocumentID: [id number] Dictated Date: 12/18/2022 18:44:31 [employer] Worker Date: 12/18/2022 21:22:00 Dictated By: GARRISON LAGUERRE MD; FLIP; FACP; FACC; JOB
== END ==
LOC: CARD 08:11
PROVIDERS: ATTEND Internal Medicine Cardiovascular Disease
DX: I42.0 Dilated cardiomyopathy (principal)
CPT/HCPCS: 78452; 93017; A9502